=== PATIENT | male | born 1975 | race American Indian/Alaskan Native ===

== ENCOUNTER 2020-02-11 12:26 | Inpatient (IN) | payer OTHER ==
--- NOTE | 2020-02-11 13:01 | Emergency Department Report ---
<DUNCAN CHAMPION - Last Filed: 02/11/20 21:56> ED General Adult HPI - General Chief complaint: Weakness Stated complaint: WEAKNESS/ALTERED MENTAL STATUS Time Seen by Provider: 02/11/20 12:49 - Related Data Allergies Allergy/AdvReac Type Severity Reaction Status Date / Time No Known Allergies Allergy Unverified 02/11/20 16:08 ED Medical Decision Making - Lab Data Result diagrams: 02/11/20 13:16 02/11/20 20:36 - Medical Decision Making Patient signed out to me by Dr. Sinclair. Repeat BMP and CK reviewed. There was some improvement in CK with 3 L of IV fluid provided. Patient continues to have normal anion gap likely secondary to dehydration ketosis. Patient then received 2 additional liters of D5 NS with repeat BMP and CK level Patient did also also eat here in the ED department Patient did receive repeat BMP and CK. Third BMP shows improvement in BUN to creatinine ratio/dehydration although bicarb is now 16. Patient also has an elevation in his CK but has only received 75% of the first liter of D5 out of the 2 that were ordered. Nurse reports that patient keeps bending his arm therefore interviewing with the effusion of the fluids at the ordered rate. Since CK is trending upwards extended hours and nurse only reports that patient has only had a small amount of urine output x2 patient will be admitted to the hospital for significant dehydration and elevated CK level 1013 signed for supervision during inpatient care ED Disposition Clinical Impression: Dehydration, Physical deconditioning, Medical clearance for psychiatric a dmission, Elevated CK Disposition: OP ADMIT IP TO THIS HOSP Is pt being admited?: Yes Condition: Stable Time of Disposition: 21:58 (Dr Farfan/hospitalist) <DAWOOD SINCLAIR - Last Filed: 02/12/20 12:37> ED General Adult HPI - General PUI?: No Source: patient, EMS ( EMS documentation not available at time of chart dictation ), RN notes reviewed, old records reviewed Mode of arrival: Stretcher Limitations: Other (Patient is a poor historian) - History of Present Illness Initial comments: The patient is a 44-year-old gentleman. This patient is not known to myself previously. He reportedly has a history of HIV, depression, and is noncompliant with his outpatient medications. He is currently on a 1013 for depression, history of noncompliance, inability to take care of himself. He was seen at [facility] recently, medically cleared, and sent to a local psychiatric facility. He is sent to the emergency room from this local psychiatric facility, [place], for evaluation. Apparently, the patient has been weak, not eating, not taking his medicines. The patient when I interview him admits to generalized weakness. He denies headache, neck pain, chest pain, abdominal pain, shortness of breath, urinary symptoms, homicidality and suicidality. He does state "my butt hurts me." He tells me that he does not want to eat the food here "because I think it probably tastes nasty." -: Gradual, days(s) Improves with: none (Patient describes no exacerbating or relieving factors) Worsens with: none ED Review of Systems ROS: Stated complaint: WEAKNESS/ALTERED MENTAL STATUS Other details as noted in HPI Constitutional: denies: fever Eyes: denies: eye discharge ENT: denies: epistaxis Respiratory: denies: cough Cardiovascular: denies: chest pain Gastrointestinal: denies: abdominal pain Genitourinary: denies: dysuria Musculoskeletal: myalgia Neurological: weakness Psychiatric: denies: homicidal thoughts, suicidal thoughts ED Past Medical Hx - Past Medical History Previous Medical History?: Yes Hx Psychiatric Treatment: Yes (depression, schizophrenia) Hx HIV: Yes - Surgical History Past Surgical History?: Yes - Social History Smoking Status: Never Smoker Substance Use Type: None ED Physical Exam - General Limitations: No Limitations General appearance: alert, in no apparent distress - Head Head exam: Present: atraumatic, normocephalic - Eye Eye exam: Present: normal appearance, EOMI, other (Visual acuity intact to finger counting, color perception, reading at a close distance). Absent: nystagmus - ENT ENT exam: Present: normal exam, normal orophraynx, mucous membranes moist, normal external ear exam - Neck Neck exam: Present: normal inspection, full ROM. Absent: tenderness, meningismus - Respiratory Respiratory exam: Present: normal lung sounds bilaterally. Absent: respiratory distress, wheezes, rales, rhonchi, stridor, decreased breath sounds - Cardiovascular Cardiovascular Exam: Present: regular rate, normal rhythm, normal heart sounds. Absent: bradycardia, tachycardia, irregular rhythm, systolic murmur, diastolic murmur, rubs, gallop - GI/Abdominal GI/Abdominal exam: Present: soft, normal bowel sounds. Absent: distended, tenderness, guarding, rebound, rigid, pulsatile mass - Rectal Rectal exam: Present: normal inspection, normal rectal tone, other (Chaperoned by nurse Cristina Dow). Absent: heme (-) stool, black stool, bloody stool - Extremities Exam Extremities exam: Present: normal inspection, full ROM, other (2+ pulses noted in the bilateral upper and lower extremities. There is no palpable cord. negative Homans sign. Muscular compartments are soft. The pelvis is stable.). Absent: pedal edema, calf tenderness - Back Exam Back exam: Present: normal inspection, full ROM. Absent: tenderness, CVA tenderness (R), CVA tenderness (L), paraspinal tenderness, vertebral tenderness - Neurological Exam Neurological exam: Present: alert, oriented X3, other (No facial droop. Tongue midline. Extraocular movements intact bilaterally. Facial sensation intact to light touch in V1, V2, V3 distribution bilaterally. 5 and a 5 strength in 4 extremities. Sensation intact to light touch in 4 extremities.). Absent: motor sensory deficit - Psychiatric Psychiatric exam: Present: flat affect. Absent: homicidal ideation, suicidal ideation - Skin Skin exam: Present: warm, dry, intact, normal color. Absent: rash ED Course Vital Signs 02/11/20 02/11/20 02/11/20 12:40 19:36 23:20 Temperature 97.9 F 98.0 F 98.0 F Pulse Rate 94 H 83 91 H Respiratory 14 16 18 Rate Blood Pressure 128/88 100/60 123/77 [Right] O2 Sat by Pulse 100 99 100 Oximetry - Reevaluation(s) Reevaluation #1: 02/11/20 13:40 Differential diagnosis, including but not limited to: Dysthymia, debility, malnutrition, electrolyte derangement, deconditioning, general medical evaluation Assessment and plan: 44-year-old gentleman, who is afebrile, with reassuring vital signs, rectal temperature 97.3 degrees, moving 4 extremities spontaneously, vigorously withdraws extremities in response to painful stimuli, who is awake, alert, oriented, protecting his airway, with a fairly unremarkable physical examination. I suspect that the patient is depressed, and deconditioned. His vital signs are unremarkable, his physical exam is fairly unremarkable, case management consultation/physical therapy consultation have been requested, patient can participate with outpatient physical therapy and rehabilitation. Laboratory studies pending, urinalysis pending, x-ray of the chest unremarkable, I do not anticipate that the patient will be criteria for admission or hospitalization at this time. I suspect that his psychiatric pathology will need to be optimized in order to improve his functional status. Reevaluation #2: 02/11/20 14:25 Laboratory studies are reviewed and appreciated. Patient has a mild anion gap, mildly elevated CK, and evidence of dehydration. IV fluids ordered, and repeat laboratory studies ordered, to assess improvement in anion gap and CK. The patient is unlikely to be criteria for hospitalization or admission at this time. Reevaluation #3: 02/11/20 15:30 Patient is resting comfortably at this time, and he is in no acute distress. IV fluids were administered. Urinalysis, repeat laboratory studies are ordered and pending. Care will be transferred to the oncoming physician, Dr. Champion, to follow-up on the aforementioned studies. We anticipate discharge. ED Medical Decision Making - Lab Data Result diagrams: 02/12/20 09:58 02/12/20 09:58 Vital Signs 02/11/20 12:40 Temperature 97.9 F Pulse Rate 94 H Respiratory 14 Rate Blood Pressure 128/88 [Right] O2 Sat by Pulse 100 Oximetry Lab Results 02/11/20 02/11/20 02/11/20 Range/Units 13:16 13:16 13:16 WBC 5.5 (4.5-11.0) K/mm3 RBC 4.13 (3.65-5.03) M/mm3 Hgb 12.4 (11.8-15.2) gm/dl Hct 36.3 (35.5-45.6) % MCV 88 (84-94) fl MCH 30 (28-32) pg MCHC 34 (32-34) % RDW 15.7 H (13.2-15.2) % Plt Count 230 (140-440) K/mm3 Lymph % (Auto) 11.0 L (13.4-35.0) % [place] % (Auto) 11.4 H (0.0-7.3) % Eos % (Auto) 0.2 (0.0-4.3) % Baso % (Auto) 0.2 (0.0-1.8) % Lymph # (Auto) 0.6 L (1.2-5.4) K/mm3 [place] # (Auto) 0.6 (0.0-0.8) K/mm3 Eos # (Auto) 0.0 (0.0-0.4) K/mm3 Baso # (Auto) 0.0 (0.0-0.1) K/mm3 Seg Neutrophils % 77.2 H (40.0-70.0) % Seg Neutrophils # 4.3 (1.8-7.7) K/mm3 Sodium 140 (137-145) mmol/L Potassium 4.2 (3.6-5.0) mmol/L Chloride 102.4 (98-107) mmol/L Carbon Dioxide 18 L (22-30) mmol/L Anion Gap 24 mmol/L BUN 33 H (9-20) mg/dL Creatinine 1.1 (0.8-1.3) mg/dL Estimated GFR > 60 ml/min BUN/Creatinine Ratio 30 % Glucose 86 (75-100) mg/dL Calcium 10.5 H (8.4-10.2) mg/dL Magnesium 2.40 H (1.7-2.3) mg/dL Total Bilirubin 0.60 (0.1-1.2) mg/dL AST 66 H (5-40) units/L ALT 31 (7-56) units/L Alkaline Phosphatase 142 H (35-129) units/L Total Creatine Kinase 1900 H (55-170) units/L Total Protein 8.8 H (6.3-8.2) g/dL Albumin 4.1 (3.9-5) g/dL Albumin/Globulin Ratio 0.9 % TSH 1.990 (0.270-4.200) mlU/mL Salicylates (2.8-20.0) mg/dL Acetaminophen (10.0-30.0) ug/mL Plasma/Serum Alcohol (0-0.07) % 02/11/20 02/11/20 02/11/20 Range/Units 13:16 13:16 13:16 WBC (4.5-11.0) K/mm3 RBC (3.65-5.03) M/mm3 Hgb (11.8-15.2) gm/dl Hct (35.5-45.6) % MCV (84-94) fl MCH (28-32) pg MCHC (32-34) % RDW (13.2-15.2) % Plt Count (140-440) K/mm3 Lymph % (Auto) (13.4-35.0) % [place] % (Auto) (0.0-7.3) % Eos % (Auto) (0.0-4.3) % Baso % (Auto) (0.0-1.8) % Lymph # (Auto) (1.2-5.4) K/mm3 [place] # (Auto) (0.0-0.8) K/mm3 Eos # (Auto) (0.0-0.4) K/mm3 Baso # (Auto) (0.0-0.1) K/mm3 Seg Neutrophils % (40.0-70.0) % Seg Neutrophils # (1.8-7.7) K/mm3 Sodium (137-145) mmol/L Potassium (3.6-5.0) mmol/L Chloride (98-107) mmol/L Carbon Dioxide (22-30) mmol/L Anion Gap mmol/L BUN (9-20) mg/dL Creatinine (0.8-1.3) mg/dL Estimated GFR ml/min BUN/Creatinine Ratio % Glucose (75-100) mg/dL Calcium (8.4-10.2) mg/dL Magnesium (1.7-2.3) mg/dL Total Bilirubin (0.1-1.2) mg/dL AST (5-40) units/L ALT (7-56) units/L Alkaline Phosphatase (35-129) units/L Total Creatine Kinase (55-170) units/L Total Protein (6.3-8.2) g/dL Albumin (3.9-5) g/dL Albumin/Globulin Ratio % TSH (0.270-4.200) mlU/mL Salicylates < 0.3 L (2.8-20.0) mg/dL Acetaminophen 5.0 L (10.0-30.0) ug/mL Plasma/Serum Alcohol < 0.01 (0-0.07) % - EKG Data -: EKG Interpreted by [place] EKG shows normal: sinus rhythm Rate: normal - EKG Data 02/11/20 13:42 Sinus rhythm, 91 bpm, normal axis, QTC within normal limits, high left ventricular voltage, the EKG is not a STEMI. There is no prior EKG available for comparison. - Radiology Data Radiology results: report reviewed, image reviewed X-ray of the chest is negative for acute findings Critical care attestation.: If time is entered above; I have spent that time in minutes in the direct care of this critically ill patient, excluding procedure time. ED Disposition Is pt being admited?: Yes Does the pt Need Aspirin: No
--- NOTE | 2020-02-11 13:30 | XRay Report ---
CHEST 1 VIEW INDICATION: weakness. COMPARISON: None FINDINGS: SUPPORT DEVICES: None. HEART: Within normal limits. LUNGS/PLEURA: No acute air space or interstitial disease. ADDITIONAL FINDINGS: None. IMPRESSION: 1. No acute findings. Signer Name: Fortunato Ceja MD Signed: 02/11/2020 1:25 PM Workstation Name: [id number]
[2020-02-11 13:44] LABS: Basophils % (Auto) 0.2 % (0.0-1.8); Eosinophils % (Auto) 0.2 % (0.0-4.3); Hematocrit 36.3 % (35.5-45.6); Hemoglobin 12.4 gm/dl (11.8-15.2); Lymphocytes # (Auto) 0.6 K/mm3 (1.2-5.4); Mean Corpuscular HGB Conc 34 % (32-34); Mean Corpuscular Volume 88 fl (84-94); Monocytes # (Auto) 0.6 K/mm3 (0.0-0.8); Monocytes % (Auto) 11.4 % (0.0-7.3); Platelet Count 230 K/mm3 (140-440); Red Blood Count 4.13 M/mm3 (3.65-5.03); Red Cell Distribution Width 15.7 % (13.2-15.2)
[2020-02-11 13:59] LABS: Alanine Aminotransferase 31 units/L (7-56); Albumin 4.1 g/dL (3.9-5); BUN/Creatinine Ratio 30; Blood Urea Nitrogen 33 mg/dL (9-20); Calcium 10.5 mg/dL (8.4-10.2); Hemolysis Index 5
[2020-02-11] MEDS ORDERED: LACTATED RINGERS 1,000 ML IV ONE ×2 (14:19)
[2020-02-11] MEDS ORDERED: SODIUM CHLORIDE 0.9% 1000 ML 1,000 ML IV ONE (15:30)
[2020-02-11 16:23] LABS: Bilirubin,Urine NEG (Negative); Blood,Urine LG (Negative); Color,Urine Amber (Yellow); Mucus,Urine FEW /HPF
[2020-02-11 17:15] LABS: BUN/Creatinine Ratio 29; Blood Urea Nitrogen 29 mg/dL (9-20); Calcium 9.8 mg/dL (8.4-10.2); Hemolysis Index 9
[2020-02-11] MEDS ORDERED: D5W/0.9% NACL 1,000 ML IV SCH ×2 (18:00)
[2020-02-11 21:14] LABS: Blood Urea Nitrogen 23 mg/dL (9-20); Calcium 8.8 mg/dL (8.4-10.2); Hemolysis Index 6
[2020-02-11 21:18] LABS: BUN/Creatinine Ratio 33
[2020-02-11] MEDS ORDERED: MAGNESIUM HYDROXIDE (MOM) ORAL LIQD UDC PO PRN (22:12)
[2020-02-11] MEDS ORDERED: ONDANSETRON 4 MG/2 ML INJ IV PRN (22:12)
[2020-02-11] MEDS ORDERED: ACETAMINOPHEN 325 MG TAB PO PRN (22:12)
--- NOTE | 2020-02-11 22:21 | History and Physical Report ---
History of Present Illness Date of examination: 02/11/20 Date of admission: 02/11/2020 Chief complaint: Generalized weakness Decreased P.O. Intake History of present illness: 44-year-old -[place] male with known history of depression, HIV positive and history of noncompliance with medications currently on 1013 for depression presents to the emergency room today for evaluation of generalized weakness. Patient was at [facility] recently and medically cleared and later sent to [place] psychiatric facility. Patient is said to have been feeling weak lately and has been having decreased oral intake and also declining his medications. He denies any headache or dizziness, no chest pain or shortness of breath, no nausea or vomiting, no diarrhea, no hematuria or dysuria. Patient is a poor historian. He denies any homicidal or suicidal ideations. Evaluation in the emergency room today reveals elevated CK level, patient was also found to be dehydrated. He has been started on IV fluid and also placed on 1013 for depression. Past History Past Medical History: other (depression,HIV) Past Surgical History: No surgical history Social history: no significant social history Family history: no significant family history Medications and Allergies Allergies Allergy/AdvReac Type Severity Reaction Status Date / Time No Known Allergies Allergy Unverified 02/11/20 16:08 Active Meds: Active Medications Acetaminophen (Tylenol) 650 mg PO Q4H PRN PRN Reason: Pain MILD(1-3)/Fever >100.5/GARCIA Heparin Sodium (Porcine) (Heparin) 5,000 unit SUB-Q Q8HR YOLI Dextrose/Sodium Chloride (D5ns) 1,000 mls @ 999 mls/hr IV DIRECT YOLI Last Admin: 02/11/20 19:03 Dose: 999 mls/hr Documented by: Sodium Chloride (Nacl 0.9% 1000 Ml) 1,000 mls @ 150 mls/hr IV DIRECT YOLI Magnesium Hydroxide (Milk Of Magnesia) 30 ml PO Q4H PRN PRN Reason: Constipation Ondansetron HCl (Zofran) 4 mg IV Q8H PRN PRN Reason: Nausea And Vomiting Sodium Chloride (Sodium Chloride Flush Syringe 10 Ml) 10 ml IV BID YOLI Sodium Chloride (Sodium Chloride Flush Syringe 10 Ml) 10 ml IV PRN PRN PRN Reason: LINE FLUSH Review of Systems Constitutional: weakness, poor appetite, no fever, no chills Ears, nose, mouth and throat: no nasal congestion, no sore throat Cardiovascular: no chest pain, no palpitations Respiratory: no cough, no shortness of breath Gastrointestinal: no abdominal pain, no nausea, no vomiting, no diarrhea Genitourinary Male: no dysuria, no hematuria, no flank pain, no nocturia Musculoskeletal: no neck pain, no low back pain Integumentary: no rash, no pruritis Neurological: no headaches, no confusion Psychiatric: depression, no anxiety Exam - Constitutional Vitals: Temp Pulse Resp BP Pulse Ox 98.0 F 83 16 100/60 99 02/11/20 19:36 02/11/20 19:36 02/11/20 19:36 02/11/20 19:36 02/11/20 19:36 General appearance: Present: no acute distress, well-nourished - EENT Eyes: Present: PERRL, EOM intact. Absent: scleral icterus ENT: hearing intact, clear oral mucosa, dentition normal - Neck Neck: Present: supple, normal ROM - Respiratory Respiratory effort: normal Respiratory: bilateral: CTA - Cardiovascular Rhythm: regular Heart Sounds: Present: S1 & S2. Absent: gallop, systolic murmur, diastolic murmur, rub - Extremities Extremities: no ischemia, pulses intact, pulses symmetrical, No edema, Full ROM Peripheral Pulses: within normal limits - Abdominal General gastrointestinal: Present: soft, non-tender, non-distended, normal bowel sounds. Absent: mass - Integumentary Integumentary: Present: clear, warm, dry. Absent: rash - Musculoskeletal Musculoskeletal: strength equal bilaterally - Psychiatric Psychiatric: appropriate mood/affect, intact judgment & insight, memory intact, cooperative - Neurologic Neurologic: CNII-XII intact, no focal deficits, moves all extremities Results - Labs CBC & Chem 7: 02/11/20 13:16 02/11/20 20:36 Labs: Abnormal lab results 02/11/20 02/11/20 02/11/20 Range/Units 13:16 13:16 13:16 RDW 15.7 H (13.2-15.2) % Lymph % (Auto) 11.0 L (13.4-35.0) % [place] % (Auto) 11.4 H (0.0-7.3) % Lymph # (Auto) 0.6 L (1.2-5.4) K/mm3 Seg Neutrophils % 77.2 H (40.0-70.0) % Chloride (98-107) mmol/L Carbon Dioxide 18 L (22-30) mmol/L BUN 33 H (9-20) mg/dL Creatinine (0.8-1.3) mg/dL Glucose (75-100) mg/dL Calcium 10.5 H (8.4-10.2) mg/dL Magnesium 2.40 H (1.7-2.3) mg/dL AST 66 H (5-40) units/L Alkaline Phosphatase 142 H (35-129) units/L Total Creatine Kinase 1900 H (55-170) units/L Total Protein 8.8 H (6.3-8.2) g/dL Salicylates < 0.3 L (2.8-20.0) mg/dL Acetaminophen (10.0-30.0) ug/mL 02/11/20 02/11/20 02/11/20 Range/Units 13:16 16:34 20:36 RDW (13.2-15.2) % Lymph % (Auto) (13.4-35.0) % [place] % (Auto) (0.0-7.3) % Lymph # (Auto) (1.2-5.4) K/mm3 Seg Neutrophils % (40.0-70.0) % Chloride 109.1 H (98-107) mmol/L Carbon Dioxide 18 L 16 L (22-30) mmol/L BUN 29 H 23 H (9-20) mg/dL Creatinine 0.7 L (0.8-1.3) mg/dL Glucose 112 H 157 H (75-100) mg/dL Calcium (8.4-10.2) mg/dL Magnesium (1.7-2.3) mg/dL AST (5-40) units/L Alkaline Phosphatase (35-129) units/L Total Creatine Kinase 1842 H 2446 H (55-170) units/L Total Protein (6.3-8.2) g/dL Salicylates (2.8-20.0) mg/dL Acetaminophen 5.0 L (10.0-30.0) ug/mL Assessment and Plan - Patient Problems (1) Elevated CK Current Visit: Yes Status: Acute Plan to address problem: Etiology is unclear. Patient commenced on IV fluid and will monitor creatinine kinase levels. (2) Physical deconditioning Current Visit: Yes Status: Acute Plan to address problem: Possibly secondary to decreased oral intake. Patient has been encouraged on having adequate p.o. intake. Will place a dietary consult for evaluation. (3) Dehydration Current Visit: Yes Status: Acute Plan to address problem: We will continue patient on IV fluid and monitor chemistry. (4) Depression Current Visit: Yes Status: Acute Plan to address problem: We will place a consult to mental health for evaluation. Will resume routine home medications once reconciled. (5) HIV positive Current Visit: Yes Status: Acute Plan to address problem: Unclear whether patient has been taking his HIV medications. CD4 count unknown. We will place a consult to infectious disease for evaluation. (6) DVT prophylaxis Current Visit: Yes Status: Acute Plan to address problem: Patient placed on subcutaneous heparin. (7) Full code status Current Visit: Yes Status: Acute
[2020-02-11] MEDS: SODIUM CHLORIDE 0.9% 1000 ML 1,000 ML IV SCH (23:50)
[2020-02-12 00:14] LABS: Amphetamine Screen,Urine PRESUMPTIVE NEGATIVE; Benzodiazepines Screen,Urine PRESUMPTIVE NEGATIVE; Cannabinoid Screen,Urine PRESUMPTIVE NEGATIVE; Cocaine Screen,Urine PRESUMPTIVE NEGATIVE; Methadone Screen,Urine PRESUMPTIVE NEGATIVE; Opiate Screen,Urine PRESUMPTIVE NEGATIVE
[2020-02-12] MEDS: HEPARIN 5,000 UNIT/1 ML VIAL SUB-Q SCH ×3 (05:59→21:39)
--- NOTE | 2020-02-12 08:46 | Progress Note ---
Assessment and Plan Assessment and plan: --Metabolic encephalopathy; Current Visit: Yes Status: Acute Plan to address problem: multifactorial, underlying psych disease HIV, severe malnutrition,Supportive care Treat the underlying cause, neurochecks --Severe depression[sent from [facility]] Current Visit: Yes Status: Acute Plan to address problem: Management per psych Patient is 1013 status[came from [place]] --Rhabdomyolysis /elevated CK Current Visit: Yes Status: Acute Plan to address problem: Rigorous IV hydration, input output monitoring, follow renal function Monitor CK levels, plenty of oral fluids --Physical deconditioning Current Visit: Yes Status: Acute Plan to address problem: Possibly secondary to decreased oral intake. Patient encouraged on having adequate p.o. intake. Will place a dietary consult for evaluation. --Severe dehydration Current Visit: Yes Status: Acute Plan to address problem: We will continue patient on IV fluid and monitor chemistry. --HIV/on antiretrovirals, unknown CD4/viral counts Current Visit: Yes Status: Acute Plan to address problem: ID evaluation, unknown CD4 count and viral load Unknown whether patient is compliant with medications or not --Severe malnutrition; BMI 16.9 Current Visit: Yes Status: Acute Plan to address problem: nutrition supplements, supportive care, nutrition consult --DVT prophylaxis Current Visit: Yes Status: Acute Plan to address problem: Patient placed on subcutaneous heparin. -- Full code status Current Visit: Yes Status: Acute We will closely monitor the patient and adjust the management as needed Patient is 1013 status, follow ID and psych evaluation and recommendations Plan of care reviewed with the patient and History Interval history: I have seen and examined the patient at the bedside this morning Patient's chart and medications reviewed Patient is slightly agitated verbal Wants to go home Vital signs noted Hospitalist Physical - Constitutional Vitals: Temp Pulse Resp BP Pulse Ox 97.9 F 89 18 143/87 99 02/12/20 06:52 02/12/20 06:52 02/12/20 06:52 02/12/20 06:52 02/12/20 06:52 General appearance: Present: no acute distress, well-nourished - EENT Eyes: Present: PERRL, EOM intact - Neck Neck: Present: supple, normal ROM - Respiratory Respiratory effort: normal Respiratory: bilateral: diminished, negative: rales, rhonchi, wheezing - Cardiovascular Rhythm: regular Heart Sounds: Present: S1 & S2 - Extremities Extremities: no ischemia, No edema - Abdominal General gastrointestinal: soft, non-tender, non-distended, normal bowel sounds - Integumentary Integumentary: Present: clear, warm - Psychiatric Psychiatric: appropriate mood/affect, cooperative - Neurologic Neurologic: CNII-XII intact, moves all extremities Results - Labs CBC & Chem 7: 02/12/20 09:58 02/12/20 09:58 Labs: Laboratory Last Values WBC 5.5 K/mm3 (4.5-11.0) 02/11/20 13:16 RBC 4.13 M/mm3 (3.65-5.03) 02/11/20 13:16 Hgb 12.4 gm/dl (11.8-15.2) 02/11/20 13:16 Hct 36.3 % (35.5-45.6) 02/11/20 13:16 MCV 88 fl (84-94) 02/11/20 13:16 MCH 30 pg (28-32) 02/11/20 13:16 MCHC 34 % (32-34) 02/11/20 13:16 RDW 15.7 % (13.2-15.2) H 02/11/20 13:16 Plt Count 230 K/mm3 (140-440) 02/11/20 13:16 Lymph % (Auto) 11.0 % (13.4-35.0) L 02/11/20 13:16 [place] % (Auto) 11.4 % (0.0-7.3) H 02/11/20 13:16 Eos % (Auto) 0.2 % (0.0-4.3) 02/11/20 13:16 Baso % (Auto) 0.2 % (0.0-1.8) 02/11/20 13:16 Lymph # (Auto) 0.6 K/mm3 (1.2-5.4) L 02/11/20 13:16 [place] # (Auto) 0.6 K/mm3 (0.0-0.8) 02/11/20 13:16 Eos # (Auto) 0.0 K/mm3 (0.0-0.4) 02/11/20 13:16 Baso # (Auto) 0.0 K/mm3 (0.0-0.1) 02/11/20 13:16 Seg Neutrophils % 77.2 % (40.0-70.0) H 02/11/20 13:16 Seg Neutrophils # 4.3 K/mm3 (1.8-7.7) 02/11/20 13:16 Sodium 140 mmol/L (137-145) 02/11/20 20:36 Potassium 3.8 mmol/L (3.6-5.0) 02/11/20 20:36 Chloride 109.1 mmol/L (98-107) H 02/11/20 20:36 Carbon Dioxide 16 mmol/L (22-30) L 02/11/20 20:36 Anion Gap 19 mmol/L 02/11/20 20:36 BUN 23 mg/dL (9-20) H 02/11/20 20:36 Creatinine 0.7 mg/dL (0.8-1.3) L 02/11/20 20:36 Estimated GFR > 60 ml/min 02/11/20 20:36 BUN/Creatinine Ratio 33 % 02/11/20 20:36 Glucose 157 mg/dL (75-100) H 02/11/20 20:36 Calcium 8.8 mg/dL (8.4-10.2) 02/11/20 20:36 Magnesium 2.40 mg/dL (1.7-2.3) H 02/11/20 13:16 Total Bilirubin 0.60 mg/dL (0.1-1.2) 02/11/20 13:16 AST 66 units/L (5-40) H 02/11/20 13:16 ALT 31 units/L (7-56) 02/11/20 13:16 Alkaline Phosphatase 142 units/L (35-129) H 02/11/20 13:16 Ammonia TNR 02/11/20 13:16 Total Creatine Kinase 2446 units/L (55-170) H 02/11/20 20:36 Total Protein 8.8 g/dL (6.3-8.2) H 02/11/20 13:16 Albumin 4.1 g/dL (3.9-5) 02/11/20 13:16 Albumin/Globulin Ratio 0.9 % 02/11/20 13:16 TSH 1.990 mlU/mL (0.270-4.200) 02/11/20 13:16 Urine Color Shaniqua (Yellow) 02/11/20 16:00 Urine Turbidity Slightly-cloudy (Clear) 02/11/20 16:00 Urine pH 5.0 (5.0-7.0) 02/11/20 16:00 Ur Specific [place] 1.025 (1.003-1.030) 02/11/20 16:00 Urine Protein 100 mg/dl mg/dL (Negative) 02/11/20 16:00 Urine Glucose (UA) Neg mg/dL (Negative) 02/11/20 16:00 Urine Ketones 20 mg/dL (Negative) 02/11/20 16:00 Urine Blood Lg (Negative) 02/11/20 16:00 Urine Nitrite Neg (Negative) 02/11/20 16:00 Urine Bilirubin Neg (Negative) 02/11/20 16:00 Urine Urobilinogen 4.0 mg/dL (<2.0) 02/11/20 16:00 Ur Leukocyte Esterase Neg (Negative) 02/11/20 16:00 Urine WBC (Auto) 2.0 /HPF (0.0-6.0) 02/11/20 16:00 Urine RBC (Auto) 3.0 /HPF (0.0-6.0) 02/11/20 16:00 U Epithel Cells (Auto) 1.0 /HPF (0-13.0) 02/11/20 16:00 Urine Mucus Few /HPF 02/11/20 16:00 Salicylates < 0.3 mg/dL (2.8-20.0) L 02/11/20 13:16 Urine Opiates Screen Presumptive negative 02/11/20 23:22 Urine Methadone Screen Presumptive negative 02/11/20 23:22 Acetaminophen 5.0 ug/mL (10.0-30.0) L 02/11/20 13:16 Ur Barbiturates Screen Presumptive negative 02/11/20 23:22 Ur Phencyclidine Scrn Presumptive negative 02/11/20 23:22 Ur Amphetamines Screen Presumptive negative 02/11/20 23:22 U Benzodiazepines Scrn Presumptive negative 02/11/20 23:22 Urine Cocaine Screen Presumptive negative 02/11/20 23:22 U Marijuana (THC) Screen Presumptive negative 02/11/20 23:22 Drugs of Abuse Note Disclamer 02/11/20 23:22 Plasma/Serum Alcohol < 0.01 % (0-0.07) 02/11/20 13:16 Gautam/IV: IV Catheter Type [Right Peripheral IV Antecubital] Active Medications - Current Medications Current Medications: Generic Name Dose Route Start Last Admin Trade Name Freq PRN Reason Stop Dose Admin Acetaminophen 650 mg 02/11/20 22:12 Tylenol PO Q4H PRN Pain MILD(1-3)/Fever >100.5/GARCIA Heparin Sodium (Porcine) 5,000 unit 02/12/20 06:00 02/12/20 05:59 Heparin SUB-Q 5,000 unit Q8HR YOLI Administration Sodium Chloride 1,000 mls @ 150 mls/hr 02/11/20 22:15 02/11/20 23:50 Nacl 0.9% 1000 Ml IV 150 mls/hr DIRECT YOLI Administration Magnesium Hydroxide 30 ml 02/11/20 22:12 Milk Of Magnesia PO Q4H PRN Constipation Ondansetron HCl 4 mg 02/11/20 22:12 Zofran IV Q8H PRN Nausea And Vomiting Sodium Chloride 10 ml 02/12/20 10:00 Sodium Chloride Flush Syringe 10 Ml IV BID YOLI Sodium Chloride 10 ml 02/11/20 22:12 Sodium Chloride Flush Syringe 10 Ml IV PRN PRN LINE FLUSH
[2020-02-12 10:49] LABS: Hematocrit 31.3 % (35.5-45.6); Mean Corpuscular HGB Conc 35 % (32-34); Mean Corpuscular Volume 90 fl (84-94); Red Blood Count 3.48 M/mm3 (3.65-5.03); Red Cell Distribution Width 15.6 % (13.2-15.2)
[2020-02-12 11:05] LABS: INR 1.13 (0.87-1.13)
[2020-02-12 11:06] LABS: Blood Urea Nitrogen 11 mg/dL (9-20); Calcium 9.5 mg/dL (8.4-10.2); Hemolysis Index 2
[2020-02-12 11:08] LABS: BUN/Creatinine Ratio 16
--- NOTE | 2020-02-12 11:24 | Consultation ---
History of Present Illness - Reason for Consult Consult date: 02/12/20 Reason for consult: depression - History of Present Psychiatric Illness The patient's medical record was reviewed and the patient's progress was discussed with the nursing staff. The sitter states the patient repeats the same thing over and over. Mike Samuel is a 44y/o male patient who was admitted from [facility] for medical clearance. During my interview with the patient today he is a/o x 3. His thought process is somewhat disorganized and tangential. He is difficult to follow. He is a poor historian. He can't give any insight as to what is going on with him. He says he was brought to the hospital for "my big toe." He then says "and I have HIV and need my medications." The patient asks "can you tell that I'm nesbitt?" He says "I really don't know why I'm here but I need someone to listen." The patient says he's "ready to get home to my boyfriend and brother." He denies any illicit drug use, alcohol or nicotine. He also denies hallucinations of any kind. The patient denies SI/HI or ever an attempt of suicide. He states, "I'm not a violent person." He denies having any psychiatric history, including ever being on any medications. The patient starts telling me about his siblings, and asks me to mention a rapper. He says "my sister is to a rapper and she's jag calvin." PAST PSYCHIATRIC HISTORY: Diagnoses: Denies Suicide attempts or Self-harm behavior: Denies Prior psychiatric hospitalizations: Once Substance Abuse history: Denies Previous psychiatric medications tried: Denies Outpatient treatment: Denies PAST MEDICAL HISTORY: Family Psychiatric History: None reported or documented SOCIAL HISTORY Marital Status: Single Living Arrangements: with boyfriend and brother Employment Status: Unemployed Access to guns/weapons: Denies Education: 12th History of Abuse: none reported Legal History: Denies REVIEW OF SYSTEMS Constitutional: Negative for weight loss ENT: Negative for stridor Respiratory: Negative for cough or hemoptysis All other systems reviewed and are negative MENTAL STATUS EXAMINATION General Appearance: Dressed appropriately Behavior: Calm and cooperative Mood: "okay" Affect and affective range: Congruent with stated mood Thought Process: disorganized, tangential Speech: tangential Suicidal Ideation: Denies Homicidal Ideation: Denies Hallucinations: Denies Delusions: None elicited Insight and Judgment: Limited Memory/Cognition: impaired Attention: Normal Orientation: Alert, oriented x 3 Assessment Major Depressive Disorder Altered Mental Status PLAN Start Risperidone 0.25mg po BID Start Trazodone 50mg po daily Start Zoloft 25mg po daily Sitter: Defer to primary Medical: Per primary Disposition: recommend acute inpatient psychiatric treatment Will follow. Thank you for this consult Medications and Allergies Allergies Allergy/AdvReac Type Severity Reaction Status Date / Time No Known Allergies Allergy Unverified 02/11/20 16:08 Active Meds: Active Medications Acetaminophen (Tylenol) 650 mg PO Q4H PRN PRN Reason: Pain MILD(1-3)/Fever >100.5/GARCIA Heparin Sodium (Porcine) (Heparin) 5,000 unit SUB-Q Q8HR YOLI Last Admin: 02/12/20 05:59 Dose: 5,000 unit Documented by: Sodium Chloride (Nacl 0.9% 1000 Ml) 1,000 mls @ 150 mls/hr IV DIRECT YOLI Last Admin: 02/11/20 23:50 Dose: 150 mls/hr Documented by: Magnesium Hydroxide (Milk Of Magnesia) 30 ml PO Q4H PRN PRN Reason: Constipation Ondansetron HCl (Zofran) 4 mg IV Q8H PRN PRN Reason: Nausea And Vomiting Sodium Chloride (Sodium Chloride Flush Syringe 10 Ml) 10 ml IV BID YOLI Sodium Chloride (Sodium Chloride Flush Syringe 10 Ml) 10 ml IV PRN PRN PRN Reason: LINE FLUSH Mental Status Exam - Vital signs Last Vital Signs Temp 97.9 F 02/12/20 06:52 Pulse 89 02/12/20 06:52 Resp 18 02/12/20 06:52 BP 143/87 02/12/20 06:52 Pulse Ox 99 02/12/20 06:52 Results Result Diagrams: 02/12/20 09:58 02/12/20 09:58 Abnormal lab results 02/11/20 02/11/20 02/11/20 Range/Units 13:16 13:16 13:16 RBC (3.65-5.03) M/mm3 Hgb (11.8-15.2) gm/dl Hct (35.5-45.6) % MCHC (32-34) % RDW 15.7 H (13.2-15.2) % Lymph % (Auto) 11.0 L (13.4-35.0) % [place] % (Auto) 11.4 H (0.0-7.3) % Lymph # (Auto) 0.6 L (1.2-5.4) K/mm3 Seg Neutrophils % 77.2 H (40.0-70.0) % Chloride (98-107) mmol/L Carbon Dioxide 18 L (22-30) mmol/L BUN 33 H (9-20) mg/dL Creatinine (0.8-1.3) mg/dL Glucose (75-100) mg/dL Calcium 10.5 H (8.4-10.2) mg/dL Magnesium 2.40 H (1.7-2.3) mg/dL AST 66 H (5-40) units/L Alkaline Phosphatase 142 H (35-129) units/L Total Creatine Kinase 1900 H (55-170) units/L Total Protein 8.8 H (6.3-8.2) g/dL Salicylates < 0.3 L (2.8-20.0) mg/dL Acetaminophen (10.0-30.0) ug/mL 02/11/20 02/11/20 02/11/20 Range/Units 13:16 16:34 20:36 RBC (3.65-5.03) M/mm3 Hgb (11.8-15.2) gm/dl Hct (35.5-45.6) % MCHC (32-34) % RDW (13.2-15.2) % Lymph % (Auto) (13.4-35.0) % [place] % (Auto) (0.0-7.3) % Lymph # (Auto) (1.2-5.4) K/mm3 Seg Neutrophils % (40.0-70.0) % Chloride 109.1 H (98-107) mmol/L Carbon Dioxide 18 L 16 L (22-30) mmol/L BUN 29 H 23 H (9-20) mg/dL Creatinine 0.7 L (0.8-1.3) mg/dL Glucose 112 H 157 H (75-100) mg/dL Calcium (8.4-10.2) mg/dL Magnesium (1.7-2.3) mg/dL AST (5-40) units/L Alkaline Phosphatase (35-129) units/L Total Creatine Kinase 1842 H 2446 H (55-170) units/L Total Protein (6.3-8.2) g/dL Salicylates (2.8-20.0) mg/dL Acetaminophen 5.0 L (10.0-30.0) ug/mL 02/12/20 02/12/20 Range/Units 09:58 09:58 RBC 3.48 L (3.65-5.03) M/mm3 Hgb 11.0 L (11.8-15.2) gm/dl Hct 31.3 L (35.5-45.6) % MCHC 35 H (32-34) % RDW 15.6 H (13.2-15.2) % Lymph % (Auto) (13.4-35.0) % [place] % (Auto) (0.0-7.3) % Lymph # (Auto) (1.2-5.4) K/mm3 Seg Neutrophils % (40.0-70.0) % Chloride 110.2 H (98-107) mmol/L Carbon Dioxide 20 L (22-30) mmol/L BUN (9-20) mg/dL Creatinine 0.7 L (0.8-1.3) mg/dL Glucose (75-100) mg/dL Calcium (8.4-10.2) mg/dL Magnesium (1.7-2.3) mg/dL AST (5-40) units/L Alkaline Phosphatase (35-129) units/L Total Creatine Kinase (55-170) units/L Total Protein (6.3-8.2) g/dL Salicylates (2.8-20.0) mg/dL Acetaminophen (10.0-30.0) ug/mL All other labs normal.
[2020-02-12] MEDS: risperiDONE 0.25 MG TAB PO SCH ×2 (13:00→21:38)
[2020-02-12] MEDS: SERTRALINE 25 MG TAB PO SCH (13:01)
[2020-02-12 13:23] LABS: Anisocytosis Few; Band Neutrophils # (Manual) 0.1 K/mm3; Basophils % (Manual) 0 % (0.0-1.8); Macrocytosis Few; Total Cells Counted 100
[2020-02-12 13:24] LABS: Platelet Count 218 K/mm3 (140-440); Platelet Estimate Consistent w Auto
[2020-02-12] MEDS: traZODone 50 MG TAB PO SCH (21:38)
[2020-02-13] MEDS: HEPARIN 5,000 UNIT/1 ML VIAL SUB-Q SCH ×3 (06:31→21:36)
--- NOTE | 2020-02-13 08:25 | Progress Note ---
Assessment and Plan Assessment and plan: --Rhabdomyolysis /elevated CK -[id number] Current Visit: Yes Status: Acute Plan to address problem: Rigorous IV hydration, input output monitoring, follow renal function Monitor CK levels, plenty of oral fluids --Metabolic encephalopathy; Current Visit: Yes Status: Acute Plan to address problem: Patient is still confused, having hallucinations sometimes Psych following --Severe depression[sent from [facility]] Current Visit: Yes Status: Acute Plan to address problem: Management per psych Patient is 1013 status[came from [facility]] --Severe dehydration Current Visit: Yes Status: Acute Plan to address problem: Continue IV hydration Encourage plenty oral fluids --HIV/on antiretrovirals, unknown CD4/viral counts Current Visit: Yes Status: Acute Plan to address problem: ID following ,unknown CD4 count and viral load Patient is mentally not stable, with confusion Hallucinations sometimes, may not be a candidate for aggressive management HIV At this point, ID following --Severe malnutrition; BMI 16.9 Current Visit: Yes Status: Acute Plan to address problem: nutrition supplements, supportive care, nutrition consult --DVT prophylaxis Current Visit: Yes Status: Acute Plan to address problem: Patient placed on subcutaneous heparin. -- Full code status Current Visit: Yes Status: Acute We will closely monitor the patient and adjust the management as needed Patient is 1013 status, follow ID and psych evaluation and recommendations Patient CK level is still high, nephrotoxic, closely monitor renal function Rigorous IV hydration, patient remains confused, with intermittent hallucination Not cleared from psych standpoint, need 1-2 more days of observation Follow CK levels as well as renal function Possible discharge in 1 to 2 days if stable medically and stable per psych History Interval history: I have seen and examined the patient at the bedside 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, 1013 status Alert and awake, confused, verbal, repeating himself Vital signs noted Hospitalist Physical - Constitutional Vitals: Temp Pulse Resp BP Pulse Ox 98.4 F 89 20 123/76 97 02/13/20 05:02/13/20 05:02/13/20 05:26 02/13/20 05:02/13/20 05:26 General appearance: Present: mild distress, well-nourished - EENT Eyes: Present: PERRL, EOM intact - Neck Neck: Present: supple, normal ROM - Respiratory Respiratory effort: normal Respiratory: bilateral: diminished, negative: rales, rhonchi, wheezing - Cardiovascular Rhythm: regular Heart Sounds: Present: S1 & S2 - Extremities Extremities: no ischemia, No edema - Abdominal General gastrointestinal: soft, non-tender, non-distended - Integumentary Integumentary: Present: clear - Psychiatric Psychiatric: appropriate mood/affect, cooperative, other (Confused at times, verbal) - Neurologic Neurologic: moves all extremities Results - Labs CBC & Chem 7: 02/12/20 09:58 02/13/20 10:38 Labs: Laboratory Last Values WBC 3.9 K/mm3 (4.5-11.0) L 02/12/20 09:58 RBC 3.48 M/mm3 (3.65-5.03) L 02/12/20 09:58 Hgb 11.0 gm/dl (11.8-15.2) L 02/12/20 09:58 Hct 31.3 % (35.5-45.6) L 02/12/20 09:58 MCV 90 fl (84-94) 02/12/20 09:58 MCH 32 pg (28-32) 02/12/20 09:58 MCHC 35 % (32-34) H 02/12/20 09:58 RDW 15.6 % (13.2-15.2) H 02/12/20 09:58 Plt Count 218 K/mm3 (140-440) 02/12/20 09:58 Lymph % (Auto) 11.0 % (13.4-35.0) L 02/11/20 13:16 Grayson % (Auto) 11.4 % (0.0-7.3) H 02/11/20 13:16 Eos % (Auto) 0.2 % (0.0-4.3) 02/11/20 13:16 Baso % (Auto) 0.2 % (0.0-1.8) 02/11/20 13:16 Lymph # (Auto) 0.6 K/mm3 (1.2-5.4) L 02/11/20 13:16 Grayson # (Auto) 0.6 K/mm3 (0.0-0.8) 02/11/20 13:16 Eos # (Auto) 0.0 K/mm3 (0.0-0.4) 02/11/20 13:16 Baso # (Auto) 0.0 K/mm3 (0.0-0.1) 02/11/20 13:16 Add Manual Diff Complete 02/12/20 09:58 Total Counted 100 02/12/20 09:58 Seg Neutrophils % 77.2 % (40.0-70.0) H 02/11/20 13:16 Seg Neuts % (Manual) 65.0 % (40.0-70.0) 02/12/20 09:58 Band Neutrophils % 3.0 % 02/12/20 09:58 Lymphocytes % (Manual) 19.0 % (13.4-35.0) 02/12/20 09:58 Reactive Lymphs % (Man) 0 % 02/12/20 09:58 Monocytes % (Manual) 12.0 % (0.0-7.3) H 02/12/20 09:58 Eosinophils % (Manual) 1.0 % (0.0-4.3) 02/12/20 09:58 Basophils % (Manual) 0 % (0.0-1.8) 02/12/20 09:58 Metamyelocytes % 0 % 02/12/20 09:58 Myelocytes % 0 % 02/12/20 09:58 Promyelocytes % 0 % 02/12/20 09:58 Blast Cells % 0 % 02/12/20 09:58 Nucleated RBC % Not Reportable 02/12/20 09:58 Seg Neutrophils # 4.3 K/mm3 (1.8-7.7) 02/11/20 13:16 Seg Neutrophils # Man 2.5 K/mm3 (1.8-7.7) 02/12/20 09:58 Band Neutrophils # 0.1 K/mm3 02/12/20 09:58 Lymphocytes # (Manual) 0.7 K/mm3 (1.2-5.4) L 02/12/20 09:58 Abs React Lymphs (Man) 0.0 K/mm3 02/12/20 09:58 Monocytes # (Manual) 0.5 K/mm3 (0.0-0.8) 02/12/20 09:58 Eosinophils # (Manual) 0.0 K/mm3 (0.0-0.4) 02/12/20 09:58 Basophils # (Manual) 0.0 K/mm3 (0.0-0.1) 02/12/20 09:58 Metamyelocytes # 0.0 K/mm3 02/12/20 09:58 Myelocytes # 0.0 K/mm3 02/12/20 09:58 Promyelocytes # 0.0 K/mm3 02/12/20 09:58 Blast Cells # 0.0 K/mm3 02/12/20 09:58 WBC Morphology Not Reportable 02/12/20 09:58 Hypersegmented Neuts Not Reportable 02/12/20 09:58 Hyposegmented Neuts Not Reportable 02/12/20 09:58 Hypogranular Neuts Not Reportable 02/12/20 09:58 Smudge Cells Not Reportable 02/12/20 09:58 Toxic Granulation Not Reportable 02/12/20 09:58 Toxic Vacuolation Not Reportable 02/12/20 09:58 Dohle Bodies Not Reportable 02/12/20 09:58 Pelger-Huet Anomaly Not Reportable 02/12/20 09:58 Htor Rods Not Reportable 02/12/20 09:58 Platelet Estimate Consistent w auto 02/12/20 09:58 Clumped Platelets Not Reportable 02/12/20 09:58 Plt Clumps, EDTA Not Reportable 02/12/20 09:58 Large Platelets Not Reportable 02/12/20 09:58 Giant Platelets Not Reportable 02/12/20 09:58 Platelet Satelliting Not Reportable 02/12/20 09:58 Plt Morphology Comment Not Reportable 02/12/20 09:58 RBC Morphology Not Reportable 02/12/20 09:58 Dimorphic RBCs Not Reportable 02/12/20 09:58 Polychromasia Not Reportable 02/12/20 09:58 Hypochromasia Not Reportable 02/12/20 09:58 Poikilocytosis Not Reportable 02/12/20 09:58 Anisocytosis Few 02/12/20 09:58 Microcytosis Few 02/12/20 09:58 Macrocytosis Few 02/12/20 09:58 Spherocytes Not Reportable 02/12/20 09:58 Pappenheimer Bodies Not Reportable 02/12/20 09:58 Sickle Cells Not Reportable 02/12/20 09:58 Target Cells Not Reportable 02/12/20 09:58 Tear Drop Cells Not Reportable 02/12/20 09:58 Ovalocytes Not Reportable 02/12/20 09:58 Helmet Cells Not Reportable 02/12/20 09:58 Reinoso-[place] Bodies Not Reportable 02/12/20 09:58 [employer] Rings Not Reportable 02/12/20 09:58 Marko Cells Not Reportable 02/12/20 09:58 Bite Cells Not Reportable 02/12/20 09:58 Crenated Cell Not Reportable 02/12/20 09:58 Elliptocytes Not Reportable 02/12/20 09:58 Acanthocytes (Spur) Not Reportable 02/12/20 09:58 Rouleaux Not Reportable 02/12/20 09:58 Hemoglobin C Crystals Not Reportable 02/12/20 09:58 Schistocytes Not Reportable 02/12/20 09:58 Malaria parasites Not Reportable 02/12/20 09:58 Prabhjot Bodies Not Reportable 02/12/20 09:58 Hem Pathologist Commnt No 02/12/20 09:58 PT 14.6 Sec. (12.2-14.9) 02/12/20 09:58 INR 1.13 (0.87-1.13) 02/12/20 09:58 Sodium 145 mmol/L (137-145) 02/12/20 09:58 Potassium 4.0 mmol/L (3.6-5.0) 02/12/20 09:58 Chloride 110.2 mmol/L (98-107) H 02/12/20 09:58 Carbon Dioxide 20 mmol/L (22-30) L 02/12/20 09:58 Anion Gap 19 mmol/L 02/12/20 09:58 BUN 11 mg/dL (9-20) 02/12/20 09:58 Creatinine 0.7 mg/dL (0.8-1.3) L 02/12/20 09:58 Estimated GFR > 60 ml/min 02/12/20 09:58 BUN/Creatinine Ratio 16 % 02/12/20 09:58 Glucose 97 mg/dL (75-100) 02/12/20 09:58 Calcium 9.5 mg/dL (8.4-10.2) 02/12/20 09:58 Magnesium 2.40 mg/dL (1.7-2.3) H 02/11/20 13:16 Total Bilirubin 0.60 mg/dL (0.1-1.2) 02/11/20 13:16 AST 66 units/L (5-40) H 02/11/20 13:16 ALT 31 units/L (7-56) 02/11/20 13:16 Alkaline Phosphatase 142 units/L (35-129) H 02/11/20 13:16 Ammonia TNR 02/11/20 13:16 Total Creatine Kinase 3363 units/L (55-170) H 02/12/20 09:58 Total Protein 8.8 g/dL (6.3-8.2) H 02/11/20 13:16 Albumin 4.1 g/dL (3.9-5) 02/11/20 13:16 Albumin/Globulin Ratio 0.9 % 02/11/20 13:16 TSH 1.990 mlU/mL (0.270-4.200) 02/11/20 13:16 Urine Color Shaniqua (Yellow) 02/11/20 16:00 Urine Turbidity Slightly-cloudy (Clear) 02/11/20 16:00 Urine pH 5.0 (5.0-7.0) 02/11/20 16:00 Ur Specific Orwell 1.025 (1.003-1.030) 02/11/20 16:00 Urine Protein 100 mg/dl mg/dL (Negative) 02/11/20 16:00 Urine Glucose (UA) Neg mg/dL (Negative) 02/11/20 16:00 Urine Ketones 20 mg/dL (Negative) 02/11/20 16:00 Urine Blood Lg (Negative) 02/11/20 16:00 Urine Nitrite Neg (Negative) 02/11/20 16:00 Urine Bilirubin Neg (Negative) 02/11/20 16:00 Urine Urobilinogen 4.0 mg/dL (<2.0) 02/11/20 16:00 Ur Leukocyte Esterase Neg (Negative) 02/11/20 16:00 Urine WBC (Auto) 2.0 /HPF (0.0-6.0) 02/11/20 16:00 Urine RBC (Auto) 3.0 /HPF (0.0-6.0) 02/11/20 16:00 U Epithel Cells (Auto) 1.0 /HPF (0-13.0) 02/11/20 16:00 Urine Mucus Few /HPF 02/11/20 16:00 Salicylates < 0.3 mg/dL (2.8-20.0) L 02/11/20 13:16 Urine Opiates Screen Presumptive negative 02/11/20 23:22 Urine Methadone Screen Presumptive negative 02/11/20 23:22 Acetaminophen 5.0 ug/mL (10.0-30.0) L 02/11/20 13:16 Ur Barbiturates Screen Presumptive negative 02/11/20 23:22 Ur Phencyclidine Scrn Presumptive negative 02/11/20 23:22 Ur Amphetamines Screen Presumptive negative 02/11/20 23:22 U Benzodiazepines Scrn Presumptive negative 02/11/20 23:22 Urine Cocaine Screen Presumptive negative 02/11/20 23:22 U Marijuana (THC) Screen Presumptive negative 02/11/20 23:22 Drugs of Abuse Note Disclamer 02/11/20 23:22 Plasma/Serum Alcohol < 0.01 % (0-0.07) 02/11/20 13:16 Gautam/IV: Voiding Method Urinal IV Catheter Type [Right Peripheral IV Antecubital] Active Medications - Current Medications Current Medications: Generic Name Dose Route Start Last Admin Trade Name Freq PRN Reason Stop Dose Admin Acetaminophen 650 mg 02/11/20 22:12 Tylenol PO Q4H PRN Pain MILD(1-3)/Fever >100.5/GARCIA Heparin Sodium (Porcine) 5,000 unit 02/12/20 06:00 02/13/20 06:31 Heparin SUB-Q 5,000 unit Q8HR YOLI Administration Sodium Chloride 1,000 mls @ 150 mls/hr 02/11/20 22:15 02/11/20 23:50 Nacl 0.9% 1000 Ml IV 150 mls/hr DIRECT YOLI Administration Magnesium Hydroxide 30 ml 02/11/20 22:12 Milk Of Magnesia PO Q4H PRN Constipation Ondansetron HCl 4 mg 02/11/20 22:12 Zofran IV Q8H PRN Nausea And Vomiting Risperidone 0.25 mg 02/12/20 12:00 02/12/20 21:38 Risperdal PO 0.25 mg BID YOLI Administration Sertraline HCl 25 mg 02/12/20 12:00 02/12/20 13:01 Zoloft PO 25 mg QDAY YOLI Administration Sodium Chloride 10 ml 02/12/20 10:00 02/12/20 21:38 Sodium Chloride Flush Syringe 10 Ml IV 10 ml BID YOLI Administration Sodium Chloride 10 ml 02/11/20 22:12 Sodium Chloride Flush Syringe 10 Ml IV PRN PRN LINE FLUSH Trazodone HCl 50 mg 02/12/20 22:00 02/12/20 21:38 Desyrel PO 50 mg QHS YOLI Administration Nutrition/Malnutrition Assess - Dietary Evaluation Nutrition/Malnutrition Findings: Nutrition Notes Start: 02/12/20 08:32 Freq: Status: Active Protocol: Document 02/12/20 08:32 LM (Rec: 02/12/20 08:49 LM [id number]) Nutrition Notes Need for Assessment generated from: MD Order,wind farm support specialist,MST Initial or Follow up Assessment Other Pertinent Diagnosis HIV, depression, dehydration, weakness Current Diet Regular Labs/Tests BUN 23 Cr 0.7 Pertinent Medications Reviewed Height 6 ft Weight 56.6 kg Fifty Six Body Weight (kg) 80.90 BMI 16.9 Weight Status Underweight Subjective/Other Information MD consult for diet education and RN screen for MST. Unable to reach pt by phone. Per RN notes pt is agitated. H&P states pt has has decreased PO intakes. 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 Ensure Enlive strawbwerry TID in diet order. Burn Absent Trauma Absent Minimum of two criteria Yes Energy Intake (non-severe) <75% Estimated Energy Requirement >7 days Reduced Vp Packaging Strength Measurably Reduced (severe) #1 Nutrition Diagnosis Malnutrition Etiology HIV, depression As Evidenced by Signs and Symptoms Pt with decreased PO intakes, weak seismic prospecting observer helper strength, BMI of 16. 9 Is patient on ventilator? No Is Patient Ambulatory and/or Out of Bed No REE-([facility]-confined to bed) 1802.244 Kcal/Kg value to use for calculation 39 Approximate Energy Requirements Using 2207 kcal/Kg Calculation Used for Recommendations Kcal/kg Additional Notes Protein: 68-86g (1.2-1.5g/kg) Fluid: 1ml/kcal Nutrition Intervention Change Diet Order: Continue regular Add Supplement/Snack (indicate name/kcal Ensure Enlive TID /protein ) Provides kCal: 1,050 Provides Protein (gm) 60 Goal #1 Meet at least 80% of energy and protein needs Goal #2 Wt gain/maintenance Anticipated Discharge Needs: Regular diet with ONS Follow-Up By: 02/14/20 Additional Comments F/U for PO/ONS intakes and tolerance
--- NOTE | 2020-02-13 08:50 | Progress Note ---
Subjective - Reason for Consult Consult date: 02/13/20 Reason for consult: depression - Chief Complaint Chief complaint: The patient's medical record was reviewed and the patient's progress was discussed with the nursing staff. The sitter at bedside states the patient has been resting quietly this morning. During my interview with the patient this morning he is awake in bed eating breakfast. The sitter is assisting him. He is a/o x 1. He is calm and cooperative. The patient says he's "moving out away from boyfriend." He says he "feels pretty good." The patient denies any hallucinations of any kind. He also denies SI/HI, stating , "no, hell no." REVIEW OF SYSTEMS Constitutional: Negative for weight loss ENT: Negative for stridor Respiratory: Negative for cough or hemoptysis All other systems reviewed and are negative MENTAL STATUS EXAMINATION General Appearance: Dressed appropriately Behavior: Calm and cooperative, good eye contact Mood: "pretty good" Affect and affective range: Congruent with stated mood Thought Process: goal directed, tangential Speech: tangential Suicidal Ideation: Denies Homicidal Ideation: Denies Hallucinations: Denies Delusions: None elicited Insight and Judgment: Limited Memory/Cognition: impaired Attention: Normal Orientation: Alert, oriented x 1 Assessment Major Depressive Disorder Altered Mental Status PLAN Continue previously prescribed medications. Sitter: Defer to primary Medical: Per primary Disposition: The patient does not meet the requirement for acute inpatient psychiatric treatment at this time. It is my clinical opinion that the patient's mentation is due to underlying acute and complex medical conditions; Rhabdo/CK 3363, Metabolic encephalopathy, severe dehydration, HIV with unknown CD4 count, and severe malnutrition with BMI 16.9. Will sign off. Please place another consult if needed in the future. Thank you for this consult Mental Status Exam - Vital signs Last Vital Signs Temp 98.4 F 02/13/20 05:26 Pulse 89 02/13/20 05:26 Resp 20 02/13/20 05:26 BP 123/76 02/13/20 05:26 Pulse Ox 97 02/13/20 05:26
[2020-02-13] MEDS: SERTRALINE 25 MG TAB PO SCH (09:47)
[2020-02-13] MEDS: risperiDONE 0.25 MG TAB PO SCH ×2 (09:47→21:35)
--- NOTE | 2020-02-13 10:58 | Consultation ---
History of Present Illness - Reason for Consult Consult date: 02/13/20 HIV/?CD4 Requesting physician: CONNOR BAKER - History of Present Illness 44 years old male with history of depression, HIV infection diagnosed in 2006, noncompliance, and off ART for 13 years, admitted on due to generalized weakness, poor p.o. intake and refusing medications. Patient reports he went to [facility] on 01/21/2020 and was immediately made 1013 and sent to [facility]. Patient denies any recent fever, chills, cough, shortness of breath, nausea, vomiting. History is difficult given patient tangential speech, reporting hallucination," I am seeing dogs", currently denying suicidal ideation. Patient also reporting being upset at [facility] due to poor care, nurses left him urinated 4 hours, " I am suing [facility]". He currently lives with his boyfriend and brother. He is not the best historian and cannot explain why he is not taking ART for 13 years. On arrival, he was afebrile, vital signs stable. Initial WBC 5.5. Hemoglobin 12.4. AST 66. CK 1900, went up to 3000. Urinalysis negative. UDS negative. Chest x-ray unremarkable. Review of Systems: positive in bold print -limited due to altered mental status General: + Generalized weakness + poor appetite Cutaneous: rash, pruritus Head: headaches or injury Eyes: changes in vision, eye pain, double vision Ears: ear pain, ear discharge, ringing or hearing loss Nose: nose bleeding, stuffiness Mouth & throat: bleeding gums, horseness, no dental problems, or swollen glands Neck: no pain, node enlargement/lumps, tyroid enlargement or tenderness Respiratory: SOB, cough, MONTANO, wheezing, sputum, hemoptysis, pleuritic chest pain Cardiovascular: chest pain, leg edema, cyanosis, MONTANO, orthopnea Musculoskeletal: edema, deformities, pain Gastrointestinal: nausea, vomiting, hematemesis, diarrhea, constipation, melena, bright red blood in stools, fecal incontinence, jaundice Genitourinary/Reproductive: frequent urination, dysuria, hematuria, incontinence Neurogical: seizures, headaches, weakness, paresthesias, loss of speech or vision; memory loss, vertigo, tremors, numbness Psychiatric: + Depressive mood + hallucinations Past History Past Medical History: other (depression,HIV) Past Surgical History: No surgical history Social history: no significant social history Family history: no significant family history Medications and Allergies Allergies Allergy/AdvReac Type Severity Reaction Status Date / Time No Known Allergies Allergy Unverified 02/11/20 16:08 Home Medications Medication Instructions Recorded Confirmed Last Taken Type No Known Home Medications [No 02/13/20 02/13/20 Unknown History Reported Home Medications] Active Meds: Active Medications Acetaminophen (Tylenol) 650 mg PO Q4H PRN PRN Reason: Pain MILD(1-3)/Fever >100.5/GARCIA Heparin Sodium (Porcine) (Heparin) 5,000 unit SUB-Q Q8HR [facility] Last Admin: 02/13/20 06:31 Dose: 5,000 unit Documented by: Sodium Chloride (Nacl 0.9% 1000 Ml) 1,000 mls @ 150 mls/hr IV DIRECT [facility] Last Admin: 02/11/20 23:50 Dose: 150 mls/hr Documented by: Magnesium Hydroxide (Milk Of Magnesia) 30 ml PO Q4H PRN PRN Reason: Constipation Ondansetron HCl (Zofran) 4 mg IV Q8H PRN PRN Reason: Nausea And Vomiting Risperidone (Risperdal) 0.25 mg PO BID [facility] Last Admin: 02/13/20 09:47 Dose: 0.25 mg Documented by: Sertraline HCl (Zoloft) 25 mg PO QDAY [facility] Last Admin: 02/13/20 09:47 Dose: 25 mg Documented by: Sodium Chloride (Sodium Chloride Flush Syringe 10 Ml) 10 ml IV BID [facility] Last Admin: 02/13/20 09:47 Dose: 10 ml Documented by: Sodium Chloride (Sodium Chloride Flush Syringe 10 Ml) 10 ml IV PRN PRN PRN Reason: LINE FLUSH Trazodone HCl (Desyrel) 50 mg PO QHS [facility] Last Admin: 02/12/20 21:38 Dose: 50 mg Documented by: Physical Examination - Physical Exam Narrative exam: General appearance: Alert in NAD mildly agitated Eyes: anicteric sclerae, moist conjunctivae; no lid-lag; PERRLA HENT: Atraumatic; oropharynx clear with moist mucous membranes and no oral thrush; normal hard and soft palate. Lungs: CTA CV: RRR no murmur Abdomen: Soft, non-tender Extremities: no edema, no cyanosis Skin: No rash. Psych: Rapid speech, tangential, visual hallucinations, paranoia Neuro: alert and oriented x 3. Moving all extermities - Constitutional Vitals: Vital Signs Temp Pulse Resp BP Pulse Ox 98.4 F 89 20 123/76 97 02/13/20 05:26 02/13/20 05:26 02/13/20 05:26 02/13/20 05:02/13/20 05:26 Temperature -Last 24 Hours Temperature 98.4 F Temperature 98.5 F Temperature 98.4 F Temperature 98.4 F Results - Labs CBC & Chem 7: 02/12/20 09:58 02/12/20 09:58 Labs: Abnormal lab results 02/12/20 02/12/20 02/12/20 Range/Units 09:58 09:58 09:58 WBC 3.9 L (4.5-11.0) K/mm3 Monocytes % (Manual) 12.0 H (0.0-7.3) % Lymphocytes # (Manual) 0.7 L (1.2-5.4) K/mm3 Chloride 110.2 H (98-107) mmol/L Carbon Dioxide 20 L (22-30) mmol/L Creatinine 0.7 L (0.8-1.3) mg/dL Total Creatine Kinase 3363 H (55-170) units/L Assessment and Plan Cultures: None Assessment: 44 years old male with history of depression, HIV infection, noncompliance, and off ART for 13 years, admitted on due to generalized weakness, poor p.o. intake and refusing medications: #HIV infection: Diagnosed in 2006, been off ART for 13 years, unknown CD4 viral load. When asked if he was interested to start ART he said "yes", but " I want the pill right now, bring me the pill now", " I do not want to go to the HIV clinic" #Dehydration/rhabdomyolysis: Patient was recently admitted to a psych facility with depressive symptoms and poor p.o. intake. #Depressive symptoms/visual hallucinations: Needs psychiatric evaluation #Elevated AST: Likely due to rhabdomyolysis. Recommendations: -Needs psychiatric evaluation -will obtain CD4 and viral load -May need PCP prophylaxis -At this point, patient is not mentally stable to commit to take his HIV medications or follow-up with HIV clinic, will reevaluate after stabilization of his psychiatric condition, [id number] Dr. Arredondo is rounding tomorrow Will follow. Nava Mcdowell MD Infectious Diseases Host/Hostess Head [facility] M [phone] O [phone]
[2020-02-13 11:54] LABS: Blood Urea Nitrogen 7 mg/dL (9-20); Calcium 9.4 mg/dL (8.4-10.2); Hemolysis Index 44
[2020-02-13 11:55] LABS: BUN/Creatinine Ratio 10
[2020-02-13] MEDS: traZODone 50 MG TAB PO SCH (21:36)
[2020-02-14] MEDS: HEPARIN 5,000 UNIT/1 ML VIAL SUB-Q SCH ×3 (05:42→21:09)
[2020-02-14 07:48] LABS: Blood Urea Nitrogen 8 mg/dL (9-20); Calcium 9.4 mg/dL (8.4-10.2); Hemolysis Index 9
[2020-02-14 07:49] LABS: BUN/Creatinine Ratio 13
[2020-02-14] MEDS ORDERED: POTASSIUM CHLORIDE ER 10 MEQ TAB PO SCH (08:09)
[2020-02-14] MEDS ORDERED: POTASSIUM CHLORIDE ER 10 MEQ TAB PO NR (09:00)
[2020-02-14] MEDS: risperiDONE 0.25 MG TAB PO SCH ×2 (09:27→21:09)
[2020-02-14] MEDS: SERTRALINE 25 MG TAB PO SCH (09:28)
--- NOTE | 2020-02-14 13:53 | Progress Note ---
Assessment and Plan Assessment: 44 year-old man with history of depression, HIV infection, noncompliance, and off ART for 13 years, admitted on due to generalized weakness, poor p.o. intake and refusing medications: #HIV infection: Diagnosed in 2006, been off ART for 13 years, unknown CD4 viral load. When asked if he was interested to start ART he said "yes", but " I want the pill right now, bring me the pill now", " I do not want to go to the HIV clinic" #Dehydration/rhabdomyolysis: Patient was recently admitted to a psych facility with depressive symptoms and poor p.o. intake. #Depressive symptoms/visual hallucinations: Psychiatry recommended acute inpatient psychiatry treatment. #Elevated AST: Likely due to rhabdomyolysis. Recommendations: -Follow-up CD4 and viral load -May need PCP prophylaxis -Psychiatry recommended acute inpatient psychiatry treatment -F/U HIV genotype, once results available, potentially can start on p.o. Biktarvy which will need to be continued at the psych facility. Biktarvy least likely to have drug interactions with psych meds -will need to be set up with [facility] or [facility] Carolyn Arredondo MD, FACP [facility] C: [phone] O: [phone] F: [phone] Subjective Date of service: 02/14/20 Interval history: No fever. Asking me to "free" him. Says he has been stuck here. I told him I am his infectious disease doctor taking over his inpatient care. He wants me to give him a prescription for HIV meds. Doesn't give me an answer why he hasn't been taking his meds or following up. Sitter at bedside. Objective - Exam Narrative Exam: Physical Exam: Constitutional: awake, alert. No acute distress Head, Ears, Nose: Normocephalic, atraumatic. External ears, nose normal Eyes: Conjunctivae/corneas clear. No icterus. No ptosis. Neck: Supple, no meningeal signs Cardiovascular: S1, S2 normal. Respiratory: Good air entry, clear to auscultation bilaterally GI: Soft, non-tender; bowel sounds normal. No peritoneal signs Musculoskeletal: No pedal edema, no cyanosis. Skin: No rash or abscess Hem/Lymphatic: No palpable cervical or supraclavicular nodes. No lymphangitis Psych: tangential speech, flat affect Neurological: Awake, alert. - Constitutional Vitals: Vital Signs Temp Pulse Resp BP Pulse Ox 98.2 F 80 18 134/77 100 02/14/20 10:15 02/14/20 10:15 02/14/20 10:15 02/14/20 10:15 02/14/20 10:15 Temperature -Last 24 Hours Temperature 98.2 F Temperature 97.9 F Temperature 97.9 F Temperature 97.9 F Temperature 98.1 F - Labs CBC & Chem 7: 02/12/20 09:58 02/14/20 06:51 Labs: Abnormal lab results 02/14/20 Range/Units 06:51 Potassium 3.5 L (3.6-5.0) mmol/L BUN 8 L (9-20) mg/dL Creatinine 0.6 L (0.8-1.3) mg/dL Total Creatine Kinase 755 H (55-170) units/L
[2020-02-14] MEDS: SODIUM CHLORIDE 0.9% 1000 ML 1,000 ML IV SCH ×2 (15:52→21:18)
--- NOTE | 2020-02-14 17:07 | Progress Note ---
Assessment and Plan Assessment and plan: --Rhabdomyolysis /elevated CK -[id number] Current Visit: Yes Status: Acute Plan to address problem: Continue rigorous IV hydration, input output monitoring, follow renal function Monitor CK levels, plenty of oral fluids --Metabolic encephalopathy; Current Visit: Yes Status: Acute Plan to address problem: Patient is still confused every now and then, Psych following, talkative repeats his words Refusing treatment --Severe depression[sent from [facility]] Current Visit: Yes Status: Acute Plan to address problem: Management per psych Patient is 1013 status[came from [place]] --Severe dehydration Current Visit: Yes Status: Acute Plan to address problem: Continue IV hydration Encourage plenty oral fluids --HIV/on antiretrovirals, unknown CD4/viral counts Current Visit: Yes Status: Acute Plan to address problem: ID following ,unknown CD4 count and viral load Patient is mentally not stable, with confusion off and on Refusing treatment, may not be a candidate for aggressive management HIV At this point, ID following --Severe malnutrition; BMI 16.9 Current Visit: Yes Status: Acute Plan to address problem: nutrition supplements, supportive care, nutrition consult --DVT prophylaxis Current Visit: Yes Status: Acute Plan to address problem: Patient placed on subcutaneous heparin. -- Full code status Current Visit: Yes Status: Acute We will closely monitor the patient and adjust the management as needed Patient is 1013 status, follow ID and psych evaluation and recommendations [facility] initially recommended inpatient psych placement , later signed off yesterday Reconsult psych, for re-evaluation and clearance for safe discharge from psych perspective. Patient was sent from [place] Discharge back to [place] vs inpatient psych vs home, Discharge planning per case management; DC back to [place]/inpatient psych facility/home with home health Plan of care reviewed with the patient's nurse and the case management History Interval history: I have seen and examined the patient at the bedside Patient is confused, repeating after himself, talking irrelevantly Refusing treatment, and 1013 status Vital signs noted Hospitalist Physical - Constitutional Vitals: Temp Pulse Resp BP Pulse Ox 98.0 F 83 20 130/80 100 02/14/20 16:30 02/14/20 16:30 02/14/20 16:30 02/14/20 16:30 02/14/20 16:30 General appearance: Present: no acute distress, well-nourished, other (Talks excessively, repeats the same sentences, refusing treatment) - EENT Eyes: Present: PERRL, EOM intact - Neck Neck: Present: supple, normal ROM - Respiratory Respiratory effort: normal Respiratory: bilateral: diminished, negative: rales, rhonchi, wheezing - Cardiovascular Rhythm: regular Heart Sounds: Present: S1 & S2 - Extremities Extremities: no ischemia, No edema - Abdominal General gastrointestinal: soft, non-tender, non-distended, normal bowel sounds - Integumentary Integumentary: Present: clear, warm - Psychiatric Psychiatric: depressed, other (Excessive talking, irrelevant talk) - Neurologic Neurologic: moves all extremities Results - Labs CBC & Chem 7: 02/12/20 09:58 02/14/20 06:51 Labs: Laboratory Last Values WBC 3.9 K/mm3 (4.5-11.0) L 02/12/20 09:58 RBC 3.48 M/mm3 (3.65-5.03) L 02/12/20 09:58 Hgb 11.0 gm/dl (11.8-15.2) L 02/12/20 09:58 Hct 31.3 % (35.5-45.6) L 02/12/20 09:58 MCV 90 fl (84-94) 02/12/20 09:58 MCH 32 pg (28-32) 02/12/20 09:58 MCHC 35 % (32-34) H 02/12/20 09:58 RDW 15.6 % (13.2-15.2) H 02/12/20 09:58 Plt Count 218 K/mm3 (140-440) 02/12/20 09:58 Lymph % (Auto) 11.0 % (13.4-35.0) L 02/11/20 13:16 [place] % (Auto) 11.4 % (0.0-7.3) H 02/11/20 13:16 Eos % (Auto) 0.2 % (0.0-4.3) 02/11/20 13:16 Baso % (Auto) 0.2 % (0.0-1.8) 02/11/20 13:16 Lymph # (Auto) 0.6 K/mm3 (1.2-5.4) L 02/11/20 13:16 [place] # (Auto) 0.6 K/mm3 (0.0-0.8) 02/11/20 13:16 Eos # (Auto) 0.0 K/mm3 (0.0-0.4) 02/11/20 13:16 Baso # (Auto) 0.0 K/mm3 (0.0-0.1) 02/11/20 13:16 Add Manual Diff Complete 02/12/20 09:58 Total Counted 100 02/12/20 09:58 Seg Neutrophils % 77.2 % (40.0-70.0) H 02/11/20 13:16 Seg Neuts % (Manual) 65.0 % (40.0-70.0) 02/12/20 09:58 Band Neutrophils % 3.0 % 02/12/20 09:58 Lymphocytes % (Manual) 19.0 % (13.4-35.0) 02/12/20 09:58 Reactive Lymphs % (Man) 0 % 02/12/20 09:58 Monocytes % (Manual) 12.0 % (0.0-7.3) H 02/12/20 09:58 Eosinophils % (Manual) 1.0 % (0.0-4.3) 02/12/20 09:58 Basophils % (Manual) 0 % (0.0-1.8) 02/12/20 09:58 Metamyelocytes % 0 % 02/12/20 09:58 Myelocytes % 0 % 02/12/20 09:58 Promyelocytes % 0 % 02/12/20 09:58 Blast Cells % 0 % 02/12/20 09:58 Nucleated RBC % Not Reportable 02/12/20 09:58 Seg Neutrophils # 4.3 K/mm3 (1.8-7.7) 02/11/20 13:16 Seg Neutrophils # Man 2.5 K/mm3 (1.8-7.7) 02/12/20 09:58 Band Neutrophils # 0.1 K/mm3 02/12/20 09:58 Lymphocytes # (Manual) 0.7 K/mm3 (1.2-5.4) L 02/12/20 09:58 Abs React Lymphs (Man) 0.0 K/mm3 02/12/20 09:58 Monocytes # (Manual) 0.5 K/mm3 (0.0-0.8) 02/12/20 09:58 Eosinophils # (Manual) 0.0 K/mm3 (0.0-0.4) 02/12/20 09:58 Basophils # (Manual) 0.0 K/mm3 (0.0-0.1) 02/12/20 09:58 Metamyelocytes # 0.0 K/mm3 02/12/20 09:58 Myelocytes # 0.0 K/mm3 02/12/20 09:58 Promyelocytes # 0.0 K/mm3 02/12/20 09:58 Blast Cells # 0.0 K/mm3 02/12/20 09:58 WBC Morphology Not Reportable 02/12/20 09:58 Hypersegmented Neuts Not Reportable 02/12/20 09:58 Hyposegmented Neuts Not Reportable 02/12/20 09:58 Hypogranular Neuts Not Reportable 02/12/20 09:58 Smudge Cells Not Reportable 02/12/20 09:58 Toxic Granulation Not Reportable 02/12/20 09:58 Toxic Vacuolation Not Reportable 02/12/20 09:58 Dohle Bodies Not Reportable 02/12/20 09:58 Pelger-Huet Anomaly Not Reportable 02/12/20 09:58 Thor Rods Not Reportable 02/12/20 09:58 Platelet Estimate Consistent w auto 02/12/20 09:58 Clumped Platelets Not Reportable 02/12/20 09:58 Plt Clumps, EDTA Not Reportable 02/12/20 09:58 Large Platelets Not Reportable 02/12/20 09:58 Giant Platelets Not Reportable 02/12/20 09:58 Platelet Satelliting Not Reportable 02/12/20 09:58 Plt Morphology Comment Not Reportable 02/12/20 09:58 RBC Morphology Not Reportable 02/12/20 09:58 Dimorphic RBCs Not Reportable 02/12/20 09:58 Polychromasia Not Reportable 02/12/20 09:58 Hypochromasia Not Reportable 02/12/20 09:58 Poikilocytosis Not Reportable 02/12/20 09:58 Anisocytosis Few 02/12/20 09:58 Microcytosis Few 02/12/20 09:58 Macrocytosis Few 02/12/20 09:58 Spherocytes Not Reportable 02/12/20 09:58 Pappenheimer Bodies Not Reportable 02/12/20 09:58 Sickle Cells Not Reportable 02/12/20 09:58 Target Cells Not Reportable 02/12/20 09:58 Tear Drop Cells Not Reportable 02/12/20 09:58 Ovalocytes Not Reportable 02/12/20 09:58 Helmet Cells Not Reportable 02/12/20 09:58 [place] Bodies Not Reportable 02/12/20 09:58 [place] Rings Not Reportable 02/12/20 09:58 Marko Cells Not Reportable 02/12/20 09:58 Bite Cells Not Reportable 02/12/20 09:58 Crenated Cell Not Reportable 02/12/20 09:58 Elliptocytes Not Reportable 02/12/20 09:58 Acanthocytes (Spur) Not Reportable 02/12/20 09:58 Rouleaux Not Reportable 02/12/20 09:58 Hemoglobin C Crystals Not Reportable 02/12/20 09:58 Schistocytes Not Reportable 02/12/20 09:58 Malaria parasites Not Reportable 02/12/20 09:58 Prabhjot Bodies Not Reportable 02/12/20 09:58 Hem Pathologist Commnt No 02/12/20 09:58 PT 14.6 Sec. (12.2-14.9) 02/12/20 09:58 INR 1.13 (0.87-1.13) 02/12/20 09:58 Sodium 139 mmol/L (137-145) 02/14/20 06:51 Potassium 3.5 mmol/L (3.6-5.0) L 02/14/20 06:51 Chloride 103.5 mmol/L (98-107) 02/14/20 06:51 Carbon Dioxide 23 mmol/L (22-30) 02/14/20 06:51 Anion Gap 16 mmol/L 02/14/20 06:51 BUN 8 mg/dL (9-20) L 02/14/20 06:51 Creatinine 0.6 mg/dL (0.8-1.3) L 02/14/20 06:51 Estimated GFR > 60 ml/min 02/14/20 06:51 BUN/Creatinine Ratio 13 % 02/14/20 06:51 Glucose 89 mg/dL (75-100) 02/14/20 06:51 Calcium 9.4 mg/dL (8.4-10.2) 02/14/20 06:51 Phosphorus 3.60 mg/dL (2.5-4.5) 02/13/20 10:38 Magnesium 1.90 mg/dL (1.7-2.3) 02/13/20 10:38 Total Bilirubin 0.60 mg/dL (0.1-1.2) 02/11/20 13:16 AST 66 units/L (5-40) H 02/11/20 13:16 ALT 31 units/L (7-56) 02/11/20 13:16 Alkaline Phosphatase 142 units/L (35-129) H 02/11/20 13:16 Ammonia TNR 02/11/20 13:16 Total Creatine Kinase 755 units/L (55-170) H 02/14/20 06:51 Total Protein 8.8 g/dL (6.3-8.2) H 02/11/20 13:16 Albumin 4.1 g/dL (3.9-5) 02/11/20 13:16 Albumin/Globulin Ratio 0.9 % 02/11/20 13:16 TSH 1.990 mlU/mL (0.270-4.200) 02/11/20 13:16 Urine Color Shaniqua (Yellow) 02/11/20 16:00 Urine Turbidity Slightly-cloudy (Clear) 02/11/20 16:00 Urine pH 5.0 (5.0-7.0) 02/11/20 16:00 Ur Specific [place] 1.025 (1.003-1.030) 02/11/20 16:00 Urine Protein 100 mg/dl mg/dL (Negative) 02/11/20 16:00 Urine Glucose (UA) Neg mg/dL (Negative) 02/11/20 16:00 Urine Ketones 20 mg/dL (Negative) 02/11/20 16:00 Urine Blood Lg (Negative) 02/11/20 16:00 Urine Nitrite Neg (Negative) 02/11/20 16:00 Urine Bilirubin Neg (Negative) 02/11/20 16:00 Urine Urobilinogen 4.0 mg/dL (<2.0) 02/11/20 16:00 Ur Leukocyte Esterase Neg (Negative) 02/11/20 16:00 Urine WBC (Auto) 2.0 /HPF (0.0-6.0) 02/11/20 16:00 Urine RBC (Auto) 3.0 /HPF (0.0-6.0) 02/11/20 16:00 U Epithel Cells (Auto) 1.0 /HPF (0-13.0) 02/11/20 16:00 Urine Mucus Few /HPF 02/11/20 16:00 Salicylates < 0.3 mg/dL (2.8-20.0) L 02/11/20 13:16 Urine Opiates Screen Presumptive negative 02/11/20 23:22 Urine Methadone Screen Presumptive negative 02/11/20 23:22 Acetaminophen 5.0 ug/mL (10.0-30.0) L 02/11/20 13:16 Ur Barbiturates Screen Presumptive negative 02/11/20 23:22 Ur Phencyclidine Scrn Presumptive negative 02/11/20 23:22 Ur Amphetamines Screen Presumptive negative 02/11/20 23:22 U Benzodiazepines Scrn Presumptive negative 02/11/20 23:22 Urine Cocaine Screen Presumptive negative 02/11/20 23:22 U Marijuana (THC) Screen Presumptive negative 02/11/20 23:22 Drugs of Abuse Note Disclamer 02/11/20 23:22 Plasma/Serum Alcohol < 0.01 % (0-0.07) 02/11/20 13:16 Gautam/IV: Voiding Method Incontinent IV Catheter Type [Right Wrist] Peripheral IV IV Catheter Type [Right Peripheral IV Antecubital] Active Medications - Current Medications Current Medications: Generic Name Dose Route Start Last Admin Trade Name Freq PRN Reason Stop Dose Admin Acetaminophen 650 mg 02/11/20 22:12 02/13/20 17:37 Tylenol PO 650 mg Q4H PRN Administration Pain MILD(1-3)/Fever >100.5/GARCIA Heparin Sodium (Porcine) 5,000 unit 02/12/20 06:00 02/14/20 15:51 Heparin SUB-Q Not Given Q8HR YOLI Sodium Chloride 1,000 mls @ 150 mls/hr 02/11/20 22:15 02/14/20 15:52 Nacl 0.9% 1000 Ml IV 150 mls/hr DIRECT YOLI Administration Magnesium Hydroxide 30 ml 02/11/20 22:12 Milk Of Magnesia PO Q4H PRN Constipation Ondansetron HCl 4 mg 02/11/20 22:12 Zofran IV Q8H PRN Nausea And Vomiting Risperidone 0.25 mg 02/12/20 12:00 02/14/20 09:27 Risperdal PO 0.25 mg BID YOLI Administration Sertraline HCl 25 mg 02/12/20 12:00 02/14/20 09:28 Zoloft PO 25 mg QDAY YOLI Administration Sodium Chloride 10 ml 02/12/20 10:00 02/14/20 09:28 Sodium Chloride Flush Syringe 10 Ml IV 10 ml BID YOLI Administration Sodium Chloride 10 ml 02/11/20 22:12 Sodium Chloride Flush Syringe 10 Ml IV PRN PRN LINE FLUSH Trazodone HCl 50 mg 02/12/20 22:00 02/13/20 21:36 Desyrel PO 50 mg QHS YOLI Administration Nutrition/Malnutrition Assess - Dietary Evaluation Nutrition/Malnutrition Findings: Nutrition Notes Start: 02/12/20 08:32 Freq: Status: Active Protocol: Document 02/14/20 13:14 (Rec: 02/14/20 13:20 [id number]) Co-Sign 02/14/20 13:14 LP Nutrition Notes Initial or Follow up Reassessment Other Pertinent Diagnosis HIV, depression, dehydration, weakness Current Diet Regular Labs/Tests K 3.5 BUN 8 Cr 0.6 Pertinent Medications K-Dur Height 6 ft Weight 61 kg [place] Body Weight (kg) 80.90 BMI 18.2 Weight change and time frame Wt change noted Subjective/Other Information FU for intakes. Pt is very agitated. Pt reports not liking the food or ONS and not being able to taste very well . Pt given Ensure Clear Mixed [place] and likes however refused to consume it, breakfast and lunch. Pt requested chopped meats. Unable to obtain weight or diet hx. Percent of energy/protein needs met: 0%/0% Burn Absent Trauma Absent Minimum of two criteria Yes Energy Intake (non-severe) <75% Estimated Energy Requirement >7 days Reduced [employer] Strength Measurably Reduced (severe) #1 Nutrition Diagnosis Malnutrition Diagnosis Progress(for reassessment Continues documentation) Is patient on ventilator? No Is Patient Ambulatory and/or Out of Bed No REE-([facility]-confined to bed) 1854.996 Kcal/Kg value to use for calculation 39 Approximate Energy Requirements Using 2379 kcal/Kg Calculation Used for Recommendations Kcal/kg Additional Notes Protein: 68-86g (1.2-1.5g/kg) Fluid: 1ml/kcal Nutrition Intervention Change Diet Order: Continue regular Add Supplement/Snack (indicate name/kcal Change to Ensure Mixed [place] /protein ) TID. Provides kCal: 720 Provides Protein (gm) 27 Goal #1 Meet at least 80% of protein and energy needs via PO and ONS intakes Goal #2 Wt gain/maintenance Anticipated Discharge Needs: Regular with ONS Follow-Up By: 02/16/20 Additional Comments F/U for PO/ONS intakes and tolerance
--- NOTE | 2020-02-14 17:13 | Progress Note ---
History Interval history: I have seen and examined the patient at the bedside Patient's chart and medications reviewed Patient is alert and awake, hypervigilant Excessive talking, repeating the words Vital signs noted Hospitalist Physical - Constitutional Vitals: Temp Pulse Resp BP Pulse Ox 98.0 F 83 20 130/80 100 02/14/20 16:30 02/14/20 16:30 02/14/20 16:30 02/14/20 16:30 02/14/20 16:30 General appearance: Present: no acute distress, well-nourished, other (Talks excessively, repeats the same sentences, refusing treatment) - EENT Eyes: Present: PERRL, EOM intact - Neck Neck: Present: supple, normal ROM - Respiratory Respiratory effort: normal Respiratory: bilateral: diminished, negative: rales, rhonchi, wheezing - Cardiovascular Rhythm: regular Heart Sounds: Present: S1 & S2 - Extremities Extremities: no ischemia, No edema - Abdominal General gastrointestinal: soft, non-tender, non-distended, normal bowel sounds - Integumentary Integumentary: Present: clear, warm - Psychiatric Psychiatric: appropriate mood/affect, cooperative - Neurologic Neurologic: CNII-XII intact, moves all extremities Results - Labs CBC & Chem 7: 02/12/20 09:58 02/14/20 06:51 Labs: Laboratory Last Values WBC 3.9 K/mm3 (4.5-11.0) L 02/12/20 09:58 RBC 3.48 M/mm3 (3.65-5.03) L 02/12/20 09:58 Hgb 11.0 gm/dl (11.8-15.2) L 02/12/20 09:58 Hct 31.3 % (35.5-45.6) L 02/12/20 09:58 MCV 90 fl (84-94) 02/12/20 09:58 MCH 32 pg (28-32) 02/12/20 09:58 MCHC 35 % (32-34) H 02/12/20 09:58 RDW 15.6 % (13.2-15.2) H 02/12/20 09:58 Plt Count 218 K/mm3 (140-440) 02/12/20 09:58 Lymph % (Auto) 11.0 % (13.4-35.0) L 02/11/20 13:16 Fleming % (Auto) 11.4 % (0.0-7.3) H 02/11/20 13:16 Eos % (Auto) 0.2 % (0.0-4.3) 02/11/20 13:16 Baso % (Auto) 0.2 % (0.0-1.8) 02/11/20 13:16 Lymph # (Auto) 0.6 K/mm3 (1.2-5.4) L 02/11/20 13:16 Fleming # (Auto) 0.6 K/mm3 (0.0-0.8) 02/11/20 13:16 Eos # (Auto) 0.0 K/mm3 (0.0-0.4) 02/11/20 13:16 Baso # (Auto) 0.0 K/mm3 (0.0-0.1) 02/11/20 13:16 Add Manual Diff Complete 02/12/20 09:58 Total Counted 100 02/12/20 09:58 Seg Neutrophils % 77.2 % (40.0-70.0) H 02/11/20 13:16 Seg Neuts % (Manual) 65.0 % (40.0-70.0) 02/12/20 09:58 Band Neutrophils % 3.0 % 02/12/20 09:58 Lymphocytes % (Manual) 19.0 % (13.4-35.0) 02/12/20 09:58 Reactive Lymphs % (Man) 0 % 02/12/20 09:58 Monocytes % (Manual) 12.0 % (0.0-7.3) H 02/12/20 09:58 Eosinophils % (Manual) 1.0 % (0.0-4.3) 02/12/20 09:58 Basophils % (Manual) 0 % (0.0-1.8) 02/12/20 09:58 Metamyelocytes % 0 % 02/12/20 09:58 Myelocytes % 0 % 02/12/20 09:58 Promyelocytes % 0 % 02/12/20 09:58 Blast Cells % 0 % 02/12/20 09:58 Nucleated RBC % Not Reportable 02/12/20 09:58 Seg Neutrophils # 4.3 K/mm3 (1.8-7.7) 02/11/20 13:16 Seg Neutrophils # Man 2.5 K/mm3 (1.8-7.7) 02/12/20 09:58 Band Neutrophils # 0.1 K/mm3 02/12/20 09:58 Lymphocytes # (Manual) 0.7 K/mm3 (1.2-5.4) L 02/12/20 09:58 Abs React Lymphs (Man) 0.0 K/mm3 02/12/20 09:58 Monocytes # (Manual) 0.5 K/mm3 (0.0-0.8) 02/12/20 09:58 Eosinophils # (Manual) 0.0 K/mm3 (0.0-0.4) 02/12/20 09:58 Basophils # (Manual) 0.0 K/mm3 (0.0-0.1) 02/12/20 09:58 Metamyelocytes # 0.0 K/mm3 02/12/20 09:58 Myelocytes # 0.0 K/mm3 02/12/20 09:58 Promyelocytes # 0.0 K/mm3 02/12/20 09:58 Blast Cells # 0.0 K/mm3 02/12/20 09:58 WBC Morphology Not Reportable 02/12/20 09:58 Hypersegmented Neuts Not Reportable 02/12/20 09:58 Hyposegmented Neuts Not Reportable 02/12/20 09:58 Hypogranular Neuts Not Reportable 02/12/20 09:58 Smudge Cells Not Reportable 02/12/20 09:58 Toxic Granulation Not Reportable 02/12/20 09:58 Toxic Vacuolation Not Reportable 02/12/20 09:58 Dohle Bodies Not Reportable 02/12/20 09:58 Pelger-Huet Anomaly Not Reportable 02/12/20 09:58 Thor Rods Not Reportable 02/12/20 09:58 Platelet Estimate Consistent w auto 02/12/20 09:58 Clumped Platelets Not Reportable 02/12/20 09:58 Plt Clumps, EDTA Not Reportable 02/12/20 09:58 Large Platelets Not Reportable 02/12/20 09:58 Giant Platelets Not Reportable 02/12/20 09:58 Platelet Satelliting Not Reportable 02/12/20 09:58 Plt Morphology Comment Not Reportable 02/12/20 09:58 RBC Morphology Not Reportable 02/12/20 09:58 Dimorphic RBCs Not Reportable 02/12/20 09:58 Polychromasia Not Reportable 02/12/20 09:58 Hypochromasia Not Reportable 02/12/20 09:58 Poikilocytosis Not Reportable 02/12/20 09:58 Anisocytosis Few 02/12/20 09:58 Microcytosis Few 02/12/20 09:58 Macrocytosis Few 02/12/20 09:58 Spherocytes Not Reportable 02/12/20 09:58 Pappenheimer Bodies Not Reportable 02/12/20 09:58 Sickle Cells Not Reportable 02/12/20 09:58 Target Cells Not Reportable 02/12/20 09:58 Tear Drop Cells Not Reportable 02/12/20 09:58 Ovalocytes Not Reportable 02/12/20 09:58 Helmet Cells Not Reportable 02/12/20 09:58 [place] Bodies Not Reportable 02/12/20 09:58 Mchenry Rings Not Reportable 02/12/20 09:58 [place] Cells Not Reportable 02/12/20 09:58 Bite Cells Not Reportable 02/12/20 09:58 Crenated Cell Not Reportable 02/12/20 09:58 Elliptocytes Not Reportable 02/12/20 09:58 Acanthocytes (Spur) Not Reportable 02/12/20 09:58 Rouleaux Not Reportable 02/12/20 09:58 Hemoglobin C Crystals Not Reportable 02/12/20 09:58 Schistocytes Not Reportable 02/12/20 09:58 Malaria parasites Not Reportable 02/12/20 09:58 Prabhjot Bodies Not Reportable 02/12/20 09:58 Hem Pathologist Commnt No 02/12/20 09:58 PT 14.6 Sec. (12.2-14.9) 02/12/20 09:58 INR 1.13 (0.87-1.13) 02/12/20 09:58 Sodium 139 mmol/L (137-145) 02/14/20 06:51 Potassium 3.5 mmol/L (3.6-5.0) L 02/14/20 06:51 Chloride 103.5 mmol/L (98-107) 02/14/20 06:51 Carbon Dioxide 23 mmol/L (22-30) 02/14/20 06:51 Anion Gap 16 mmol/L 02/14/20 06:51 BUN 8 mg/dL (9-20) L 02/14/20 06:51 Creatinine 0.6 mg/dL (0.8-1.3) L 02/14/20 06:51 Estimated GFR > 60 ml/min 02/14/20 06:51 BUN/Creatinine Ratio 13 % 02/14/20 06:51 Glucose 89 mg/dL (75-100) 02/14/20 06:51 Calcium 9.4 mg/dL (8.4-10.2) 02/14/20 06:51 Phosphorus 3.60 mg/dL (2.5-4.5) 02/13/20 10:38 Magnesium 1.90 mg/dL (1.7-2.3) 02/13/20 10:38 Total Bilirubin 0.60 mg/dL (0.1-1.2) 02/11/20 13:16 AST 66 units/L (5-40) H 02/11/20 13:16 ALT 31 units/L (7-56) 02/11/20 13:16 Alkaline Phosphatase 142 units/L (35-129) H 02/11/20 13:16 Ammonia TNR 02/11/20 13:16 Total Creatine Kinase 755 units/L (55-170) H 02/14/20 06:51 Total Protein 8.8 g/dL (6.3-8.2) H 02/11/20 13:16 Albumin 4.1 g/dL (3.9-5) 02/11/20 13:16 Albumin/Globulin Ratio 0.9 % 02/11/20 13:16 TSH 1.990 mlU/mL (0.270-4.200) 02/11/20 13:16 Urine Color Shaniqua (Yellow) 02/11/20 16:00 Urine Turbidity Slightly-cloudy (Clear) 02/11/20 16:00 Urine pH 5.0 (5.0-7.0) 02/11/20 16:00 Ur Specific Bryan 1.025 (1.003-1.030) 02/11/20 16:00 Urine Protein 100 mg/dl mg/dL (Negative) 02/11/20 16:00 Urine Glucose (UA) Neg mg/dL (Negative) 02/11/20 16:00 Urine Ketones 20 mg/dL (Negative) 02/11/20 16:00 Urine Blood Lg (Negative) 02/11/20 16:00 Urine Nitrite Neg (Negative) 02/11/20 16:00 Urine Bilirubin Neg (Negative) 02/11/20 16:00 Urine Urobilinogen 4.0 mg/dL (<2.0) 02/11/20 16:00 Ur Leukocyte Esterase Neg (Negative) 02/11/20 16:00 Urine WBC (Auto) 2.0 /HPF (0.0-6.0) 02/11/20 16:00 Urine RBC (Auto) 3.0 /HPF (0.0-6.0) 02/11/20 16:00 U Epithel Cells (Auto) 1.0 /HPF (0-13.0) 02/11/20 16:00 Urine Mucus Few /HPF 02/11/20 16:00 Salicylates < 0.3 mg/dL (2.8-20.0) L 02/11/20 13:16 Urine Opiates Screen Presumptive negative 02/11/20 23:22 Urine Methadone Screen Presumptive negative 02/11/20 23:22 Acetaminophen 5.0 ug/mL (10.0-30.0) L 02/11/20 13:16 Ur Barbiturates Screen Presumptive negative 02/11/20 23:22 Ur Phencyclidine Scrn Presumptive negative 02/11/20 23:22 Ur Amphetamines Screen Presumptive negative 02/11/20 23:22 U Benzodiazepines Scrn Presumptive negative 02/11/20 23:22 Urine Cocaine Screen Presumptive negative 02/11/20 23:22 U Marijuana (THC) Screen Presumptive negative 02/11/20 23:22 Drugs of Abuse Note Disclamer 02/11/20 23:22 Plasma/Serum Alcohol < 0.01 % (0-0.07) 02/11/20 13:16 Gautam/IV: Voiding Method Incontinent IV Catheter Type [Right Wrist] Peripheral IV IV Catheter Type [Right Peripheral IV Antecubital] Active Medications - Current Medications Current Medications: Generic Name Dose Route Start Last Admin Trade Name Freq PRN Reason Stop Dose Admin Acetaminophen 650 mg 02/11/20 22:12 02/13/20 17:37 Tylenol PO 650 mg Q4H PRN Administration Pain MILD(1-3)/Fever >100.5/GARCIA Heparin Sodium (Porcine) 5,000 unit 02/12/20 06:00 02/14/20 15:51 Heparin SUB-Q Not Given Q8HR YOLI Sodium Chloride 1,000 mls @ 150 mls/hr 02/11/20 22:15 02/14/20 15:52 Nacl 0.9% 1000 Ml IV 150 mls/hr DIRECT YOLI Administration Magnesium Hydroxide 30 ml 02/11/20 22:12 Milk Of Magnesia PO Q4H PRN Constipation Ondansetron HCl 4 mg 02/11/20 22:12 Zofran IV Q8H PRN Nausea And Vomiting Risperidone 0.25 mg 02/12/20 12:00 02/14/20 09:27 Risperdal PO 0.25 mg BID YOLI Administration Sertraline HCl 25 mg 02/12/20 12:00 02/14/20 09:28 Zoloft PO 25 mg QDAY YOLI Administration Sodium Chloride 10 ml 02/12/20 10:00 02/14/20 09:28 Sodium Chloride Flush Syringe 10 Ml IV 10 ml BID YOLI Administration Sodium Chloride 10 ml 02/11/20 22:12 Sodium Chloride Flush Syringe 10 Ml IV PRN PRN LINE FLUSH Trazodone HCl 50 mg 02/12/20 22:00 02/13/20 21:36 Desyrel PO 50 mg QHS YOLI Administration Nutrition/Malnutrition Assess - Dietary Evaluation Nutrition/Malnutrition Findings: Nutrition Notes Start: 02/12/20 08:32 Freq: Status: Active Protocol: Document 02/14/20 13:14 (Rec: 02/14/20 13:20 [id number]) Co-Sign 02/14/20 13:14 LP Nutrition Notes Initial or Follow up Reassessment Other Pertinent Diagnosis HIV, depression, dehydration, weakness Current Diet Regular Labs/Tests K 3.5 BUN 8 Cr 0.6 Pertinent Medications K-Dur Height 6 ft Weight 61 kg [place] Body Weight (kg) 80.90 BMI 18.2 Weight change and time frame Wt change noted Subjective/Other Information FU for intakes. Pt is very agitated. Pt reports not liking the food or ONS and not being able to taste very well . Pt given Ensure Clear Mixed Dunn and likes however refused to consume it, breakfast and lunch. Pt requested chopped meats. Unable to obtain weight or diet hx. 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 No Is Patient Ambulatory and/or Out of Bed No REE-([place]-confined to bed) 1854.996 Kcal/Kg value to use for calculation 39 Approximate Energy Requirements Using 2379 kcal/Kg Calculation Used for Recommendations Kcal/kg Additional Notes Protein: 68-86g (1.2-1.5g/kg) Fluid: 1ml/kcal Nutrition Intervention Change Diet Order: Continue regular Add Supplement/Snack (indicate name/kcal Change to Ensure Mixed Dunn /protein ) TID. Provides kCal: 720 Provides Protein (gm) 27 Goal #1 Meet at least 80% of protein and energy needs via PO and ONS intakes Goal #2 Wt gain/maintenance Anticipated Discharge Needs: Regular with ONS Follow-Up By: 02/16/20 Additional Comments F/U for PO/ONS intakes and tolerance
[2020-02-14] MEDS: traZODone 50 MG TAB PO SCH (21:09)
[2020-02-15] MEDS: SODIUM CHLORIDE 0.9% 1000 ML 1,000 ML IV SCH ×2 (06:20→22:20)
[2020-02-15] MEDS: HEPARIN 5,000 UNIT/1 ML VIAL SUB-Q SCH ×3 (06:20→22:20)
[2020-02-15] MEDS: risperiDONE 0.25 MG TAB PO SCH ×2 (09:25→22:20)
[2020-02-15] MEDS: LORazepam 1 MG TAB PO PRN ×2 (09:25→14:18)
[2020-02-15] MEDS: SERTRALINE 25 MG TAB PO SCH (09:25)
--- NOTE | 2020-02-15 13:19 | Consultation ---
History of Present Illness - Reason for Consult Consult date: 02/15/20 Reason for consult: depression - Chief Complaint Chief complaint: Mike Samuel is a patient who is known to me from a recent consult. At that time the patient was admitted for acute medical conditions from a local psychiatric facility for depression. During my interview with the patient, the patient is a/o x 2. He says he's doing "good." The patient denies SI/HI, but c/o hearing puppies. 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 He says this has been going on for about a month. He says the patient stopped taking his HIV medication for years. I advised the brother that since this is an underlying cause the patient would not likely benefit from psychiatric services. He says he was told at the last facility and a doctor at this facility that he was manic. He says he prefers inpatient because the patient has never been on any psych meds and he's hoping this will help stabilize him. He states "I'm not trying to dump my brother anywhere, but I feel like he would benefit from psych." PAST PSYCHIATRIC HISTORY: Diagnoses: Denies Suicide attempts or Self-harm behavior: Denies Prior psychiatric hospitalizations: Once Substance Abuse history: Denies Previous psychiatric medications tried: Denies Outpatient treatment: Denies PAST MEDICAL HISTORY: Family Psychiatric History: None reported or documented SOCIAL HISTORY Marital Status: Single Living Arrangements: with boyfriend and brother Employment Status: Unemployed Access to guns/weapons: Denies Education: 12th History of Abuse: none reported Legal History: Denies REVIEW OF SYSTEMS Constitutional: Negative for weight loss ENT: Negative for stridor Respiratory: Negative for cough or hemoptysis All other systems reviewed and are negative MENTAL STATUS EXAMINATION General Appearance: Dressed appropriately Behavior: Calm and cooperative Mood: "good" Affect and affective range: Congruent with stated mood Thought Process: disorganized, tangential Speech: tangential Suicidal Ideation: Denies Homicidal Ideation: Denies Hallucinations: Denies Delusions: None elicited Insight and Judgment: Limited Memory/Cognition: impaired Attention: Normal Orientation: Alert, oriented x 2 Assessment Major Depressive Disorder Altered Mental Status Assessment Major Depressive Disorder Altered Mental Status PLAN Continue previously prescribed medications. Sitter: Defer to primary Medical: Per primary Disposition: Will recommend acute inpatient psychiatric treatment at this time to alleviate family concerns. It is my clinical opinion that the patient's mentation is due to underlying acute and complex medical conditions and would not likely benefit; Rhabdo/CK 3363; now trending down, Metabolic encephalopathy, severe dehydration, HIV with unknown CD4 count, and severe malnutrition with BMI 16.9. Will Continue to follow. Thank you for this consult Medications and Allergies Allergies Allergy/AdvReac Type Severity Reaction Status Date / Time No Known Allergies Allergy Unverified 02/11/20 16:08 Home Medications Medication Instructions Recorded Confirmed Last Taken Type No Known Home Medications [No 02/13/20 02/13/20 Unknown History Reported Home Medications] Active Meds: Active Medications Acetaminophen (Tylenol) 650 mg PO Q4H PRN PRN Reason: Pain MILD(1-3)/Fever >100.5/GARCIA Last Admin: 02/13/20 17:37 Dose: 650 mg Documented by: Heparin Sodium (Porcine) (Heparin) 5,000 unit SUB-Q Q8HR YOLI Last Admin: 02/15/20 06:20 Dose: 5,000 unit Documented by: Sodium Chloride (Nacl 0.9% 1000 Ml) 1,000 mls @ 150 mls/hr IV DIRECT [facility] Last Admin: 02/15/20 06:20 Dose: 150 mls/hr Documented by: Lorazepam (Ativan) 1 mg PO Q3HR PRN PRN Reason: Agitation Last Admin: 02/15/20 09:25 Dose: 1 mg Documented by: Magnesium Hydroxide (Milk Of Magnesia) 30 ml PO Q4H PRN PRN Reason: Constipation Ondansetron HCl (Zofran) 4 mg IV Q8H PRN PRN Reason: Nausea And Vomiting Risperidone (Risperdal) 0.25 mg PO BID [facility] Last Admin: 02/15/20 09:25 Dose: 0.25 mg Documented by: Sertraline HCl (Zoloft) 25 mg PO QDAY [facility] Last Admin: 02/15/20 09:25 Dose: 25 mg Documented by: Sodium Chloride (Sodium Chloride Flush Syringe 10 Ml) 10 ml IV BID [facility] Last Admin: 02/15/20 09:25 Dose: Not Given Documented by: Sodium Chloride (Sodium Chloride Flush Syringe 10 Ml) 10 ml IV PRN PRN PRN Reason: LINE FLUSH Trazodone HCl (Desyrel) 50 mg PO QHS [facility] Last Admin: 02/14/20 21:09 Dose: 50 mg Documented by: Mental Status Exam - Vital signs Last Vital Signs Temp 97.8 F 02/15/20 11:16 Pulse 78 02/15/20 11:20 Resp 18 02/15/20 11:16 BP 138/93 02/15/20 11:16 Pulse Ox 63 L 02/15/20 04:50 Results Result Diagrams: 02/12/20 09:58 02/14/20 06:51 Abnormal lab results 02/15/20 Range/Units 09:51 Total Creatine Kinase 455 H (55-170) units/L All other labs normal.
--- NOTE | 2020-02-15 15:04 | Event Note ---
Date: 02/15/20 F/U HIV genotype, once results available, potentially can start on p.o. Biktarvy which will need to be continued at the psych facility. Biktarvy least likely to have drug interactions with psych meds
--- NOTE | 2020-02-15 19:27 | Progress Note ---
Assessment and Plan Assessment and plan: --Rhabdomyolysis /elevated CK -[id number] Current Visit: Yes Status: Acute Plan to address problem: Continue rigorous IV hydration, input output monitoring, follow renal function Monitor CK levels, plenty of oral fluids --Metabolic encephalopathy; Current Visit: Yes Status: Acute Plan to address problem: Patient is still confused every now and then, Psych following, talkative repeats his words Refusing treatment --Severe depression[sent from [facility]] Current Visit: Yes Status: Acute Plan to address problem: Management per psych, recommend inpatient psych placement Patient is 1013 status[came from [place]] --Severe dehydration Current Visit: Yes Status: Acute Plan to address problem: Continue IV hydration Encourage plenty oral fluids --HIV/on antiretrovirals, unknown CD4/viral counts Current Visit: Yes Status: Acute Plan to address problem: ID following ,unknown CD4 count and viral load Patient is mentally not stable, with confusion off and on Refusing treatment, may not be a candidate for aggressive management HIV At this point, ID following --Severe malnutrition; BMI 16.9 Current Visit: Yes Status: Acute Plan to address problem: nutrition supplements, supportive care, nutrition consult --DVT prophylaxis Current Visit: Yes Status: Acute Plan to address problem: Patient placed on subcutaneous heparin. 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 Hospitalist Physical - Constitutional Vitals: Temp Pulse Resp BP Pulse Ox 98.9 F 88 16 121/84 100 02/15/20 17:46 02/15/20 17:46 02/15/20 17:46 02/15/20 17:46 02/15/20 17:46 General appearance: Present: no acute distress, well-nourished, other (Talks e xcessively, repeats the same sentences, refusing treatment) - EENT Eyes: Present: PERRL, EOM intact - Neck Neck: Present: supple, normal ROM - Respiratory Respiratory effort: normal Respiratory: bilateral: diminished, rhonchi, negative: rales, wheezing - Cardiovascular Rhythm: regular Heart Sounds: Present: S1 & S2 - Extremities Extremities: no ischemia, No edema - Abdominal General gastrointestinal: soft, non-tender, non-distended, normal bowel sounds - Integumentary Integumentary: Present: clear, warm - Psychiatric Psychiatric: appropriate mood/affect, agitated, other (Confused) - Neurologic Neurologic: moves all extremities Results - Labs CBC & Chem 7: 02/12/20 09:58 02/14/20 06:51 Labs: Laboratory Last Values WBC 3.9 K/mm3 (4.5-11.0) L 02/12/20 09:58 RBC 3.48 M/mm3 (3.65-5.03) L 02/12/20 09:58 Hgb 11.0 gm/dl (11.8-15.2) L 02/12/20 09:58 Hct 31.3 % (35.5-45.6) L 02/12/20 09:58 MCV 90 fl (84-94) 02/12/20 09:58 MCH 32 pg (28-32) 02/12/20 09:58 MCHC 35 % (32-34) H 02/12/20 09:58 RDW 15.6 % (13.2-15.2) H 02/12/20 09:58 Plt Count 218 K/mm3 (140-440) 02/12/20 09:58 Lymph % (Auto) 11.0 % (13.4-35.0) L 02/11/20 13:16 Wells % (Auto) 11.4 % (0.0-7.3) H 02/11/20 13:16 Eos % (Auto) 0.2 % (0.0-4.3) 02/11/20 13:16 Baso % (Auto) 0.2 % (0.0-1.8) 02/11/20 13:16 Lymph # (Auto) 0.6 K/mm3 (1.2-5.4) L 02/11/20 13:16 Wells # (Auto) 0.6 K/mm3 (0.0-0.8) 02/11/20 13:16 Eos # (Auto) 0.0 K/mm3 (0.0-0.4) 02/11/20 13:16 Baso # (Auto) 0.0 K/mm3 (0.0-0.1) 02/11/20 13:16 Add Manual Diff Complete 02/12/20 09:58 Total Counted 100 02/12/20 09:58 Seg Neutrophils % 77.2 % (40.0-70.0) H 02/11/20 13:16 Seg Neuts % (Manual) 65.0 % (40.0-70.0) 02/12/20 09:58 Band Neutrophils % 3.0 % 02/12/20 09:58 Lymphocytes % (Manual) 19.0 % (13.4-35.0) 02/12/20 09:58 Reactive Lymphs % (Man) 0 % 02/12/20 09:58 Monocytes % (Manual) 12.0 % (0.0-7.3) H 02/12/20 09:58 Eosinophils % (Manual) 1.0 % (0.0-4.3) 02/12/20 09:58 Basophils % (Manual) 0 % (0.0-1.8) 02/12/20 09:58 Metamyelocytes % 0 % 02/12/20 09:58 Myelocytes % 0 % 02/12/20 09:58 Promyelocytes % 0 % 02/12/20 09:58 Blast Cells % 0 % 02/12/20 09:58 Nucleated RBC % Not Reportable 02/12/20 09:58 Seg Neutrophils # 4.3 K/mm3 (1.8-7.7) 02/11/20 13:16 Seg Neutrophils # Man 2.5 K/mm3 (1.8-7.7) 02/12/20 09:58 Band Neutrophils # 0.1 K/mm3 02/12/20 09:58 Lymphocytes # (Manual) 0.7 K/mm3 (1.2-5.4) L 02/12/20 09:58 Abs React Lymphs (Man) 0.0 K/mm3 02/12/20 09:58 Monocytes # (Manual) 0.5 K/mm3 (0.0-0.8) 02/12/20 09:58 Eosinophils # (Manual) 0.0 K/mm3 (0.0-0.4) 02/12/20 09:58 Basophils # (Manual) 0.0 K/mm3 (0.0-0.1) 02/12/20 09:58 Metamyelocytes # 0.0 K/mm3 02/12/20 09:58 Myelocytes # 0.0 K/mm3 02/12/20 09:58 Promyelocytes # 0.0 K/mm3 02/12/20 09:58 Blast Cells # 0.0 K/mm3 02/12/20 09:58 WBC Morphology Not Reportable 02/12/20 09:58 Hypersegmented Neuts Not Reportable 02/12/20 09:58 Hyposegmented Neuts Not Reportable 02/12/20 09:58 Hypogranular Neuts Not Reportable 02/12/20 09:58 Smudge Cells Not Reportable 02/12/20 09:58 Toxic Granulation Not Reportable 02/12/20 09:58 Toxic Vacuolation Not Reportable 02/12/20 09:58 Dohle Bodies Not Reportable 02/12/20 09:58 Pelger-Huet Anomaly Not Reportable 02/12/20 09:58 Thor Rods Not Reportable 02/12/20 09:58 Platelet Estimate Consistent w auto 02/12/20 09:58 Clumped Platelets Not Reportable 02/12/20 09:58 Plt Clumps, EDTA Not Reportable 02/12/20 09:58 Large Platelets Not Reportable 02/12/20 09:58 Giant Platelets Not Reportable 02/12/20 09:58 Platelet Satelliting Not Reportable 02/12/20 09:58 Plt Morphology Comment Not Reportable 02/12/20 09:58 RBC Morphology Not Reportable 02/12/20 09:58 Dimorphic RBCs Not Reportable 02/12/20 09:58 Polychromasia Not Reportable 02/12/20 09:58 Hypochromasia Not Reportable 02/12/20 09:58 Poikilocytosis Not Reportable 02/12/20 09:58 Anisocytosis Few 02/12/20 09:58 Microcytosis Few 02/12/20 09:58 Macrocytosis Few 02/12/20 09:58 Spherocytes Not Reportable 02/12/20 09:58 Pappenheimer Bodies Not Reportable 02/12/20 09:58 Sickle Cells Not Reportable 02/12/20 09:58 Target Cells Not Reportable 02/12/20 09:58 Tear Drop Cells Not Reportable 02/12/20 09:58 Ovalocytes Not Reportable 02/12/20 09:58 Helmet Cells Not Reportable 02/12/20 09:58 Re[place] [facility] Bodies Not Reportable 02/12/20 09:58 Addison Rings Not Reportable 02/12/20 09:58 Marko Cells Not Reportable 02/12/20 09:58 Bite Cells Not Reportable 02/12/20 09:58 Crenated Cell Not Reportable 02/12/20 09:58 Elliptocytes Not Reportable 02/12/20 09:58 Acanthocytes (Spur) Not Reportable 02/12/20 09:58 Rouleaux Not Reportable 02/12/20 09:58 Hemoglobin C Crystals Not Reportable 02/12/20 09:58 Schistocytes Not Reportable 02/12/20 09:58 Malaria parasites Not Reportable 02/12/20 09:58 Prabhjot Bodies Not Reportable 02/12/20 09:58 Hem Pathologist Commnt No 02/12/20 09:58 PT 14.6 Sec. (12.2-14.9) 02/12/20 09:58 INR 1.13 (0.87-1.13) 02/12/20 09:58 Sodium 139 mmol/L (137-145) 02/14/20 06:51 Potassium 3.5 mmol/L (3.6-5.0) L 02/14/20 06:51 Chloride 103.5 mmol/L (98-107) 02/14/20 06:51 Carbon Dioxide 23 mmol/L (22-30) 02/14/20 06:51 Anion Gap 16 mmol/L 02/14/20 06:51 BUN 8 mg/dL (9-20) L 02/14/20 06:51 Creatinine 0.6 mg/dL (0.8-1.3) L 02/14/20 06:51 Estimated GFR > 60 ml/min 02/14/20 06:51 BUN/Creatinine Ratio 13 % 02/14/20 06:51 Glucose 89 mg/dL (75-100) 02/14/20 06:51 Calcium 9.4 mg/dL (8.4-10.2) 02/14/20 06:51 Phosphorus 3.60 mg/dL (2.5-4.5) 02/13/20 10:38 Magnesium 1.90 mg/dL (1.7-2.3) 02/13/20 10:38 Total Bilirubin 0.60 mg/dL (0.1-1.2) 02/11/20 13:16 AST 66 units/L (5-40) H 02/11/20 13:16 ALT 31 units/L (7-56) 02/11/20 13:16 Alkaline Phosphatase 142 units/L (35-129) H 02/11/20 13:16 Ammonia TNR 02/11/20 13:16 Total Creatine Kinase 455 units/L (55-170) H 02/15/20 09:51 Total Protein 8.8 g/dL (6.3-8.2) H 02/11/20 13:16 Albumin 4.1 g/dL (3.9-5) 02/11/20 13:16 Albumin/Globulin Ratio 0.9 % 02/11/20 13:16 TSH 1.990 mlU/mL (0.270-4.200) 02/11/20 13:16 Urine Color Shaniqua (Yellow) 02/11/20 16:00 Urine Turbidity Slightly-cloudy (Clear) 02/11/20 16:00 Urine pH 5.0 (5.0-7.0) 02/11/20 16:00 Ur Specific [place] 1.025 (1.003-1.030) 02/11/20 16:00 Urine Protein 100 mg/dl mg/dL (Negative) 02/11/20 16:00 Urine Glucose (UA) Neg mg/dL (Negative) 02/11/20 16:00 Urine Ketones 20 mg/dL (Negative) 02/11/20 16:00 Urine Blood Lg (Negative) 02/11/20 16:00 Urine Nitrite Neg (Negative) 02/11/20 16:00 Urine Bilirubin Neg (Negative) 02/11/20 16:00 Urine Urobilinogen 4.0 mg/dL (<2.0) 02/11/20 16:00 Ur Leukocyte Esterase Neg (Negative) 02/11/20 16:00 Urine WBC (Auto) 2.0 /HPF (0.0-6.0) 02/11/20 16:00 Urine RBC (Auto) 3.0 /HPF (0.0-6.0) 02/11/20 16:00 U Epithel Cells (Auto) 1.0 /HPF (0-13.0) 02/11/20 16:00 Urine Mucus Few /HPF 02/11/20 16:00 Salicylates < 0.3 mg/dL (2.8-20.0) L 02/11/20 13:16 Urine Opiates Screen Presumptive negative 02/11/20 23:22 Urine Methadone Screen Presumptive negative 02/11/20 23:22 Acetaminophen 5.0 ug/mL (10.0-30.0) L 02/11/20 13:16 Ur Barbiturates Screen Presumptive negative 02/11/20 23:22 Ur Phencyclidine Scrn Presumptive negative 02/11/20 23:22 Ur Amphetamines Screen Presumptive negative 02/11/20 23:22 U Benzodiazepines Scrn Presumptive negative 02/11/20 23:22 Urine Cocaine Screen Presumptive negative 02/11/20 23:22 U Marijuana (THC) Screen Presumptive negative 02/11/20 23:22 Drugs of Abuse Note Disclamer 02/11/20 23:22 Plasma/Serum Alcohol < 0.01 % (0-0.07) 02/11/20 13:16 Gautam/IV: Voiding Method Diaper IV Catheter Type [Right Wrist] Peripheral IV IV Catheter Type [Right Peripheral IV Antecubital] Active Medications - Current Medications Current Medications: Generic Name Dose Route Start Last Admin Trade Name Freq PRN Reason Stop Dose Admin Acetaminophen 650 mg 02/11/20 22:12 02/13/20 17:37 Tylenol PO 650 mg Q4H PRN Administration Pain MILD(1-3)/Fever >100.5/GARCIA Heparin Sodium (Porcine) 5,000 unit 02/12/20 06:00 02/15/20 13:43 Heparin SUB-Q Not Given Q8HR YOLI Sodium Chloride 1,000 mls @ 150 mls/hr 02/11/20 22:15 02/15/20 06:20 Nacl 0.9% 1000 Ml IV 150 mls/hr DIRECT YOLI Administration Lorazepam 1 mg 02/14/20 20:17 02/15/20 14:18 Ativan PO 1 mg Q3HR PRN Administration Agitation Magnesium Hydroxide 30 ml 02/11/20 22:12 Milk Of Magnesia PO Q4H PRN Constipation Ondansetron HCl 4 mg 02/11/20 22:12 Zofran IV Q8H PRN Nausea And Vomiting Risperidone 0.25 mg 02/12/20 12:00 02/15/20 09:25 Risperdal PO 0.25 mg BID YOLI Administration Sertraline HCl 25 mg 02/12/20 12:00 02/15/20 09:25 Zoloft PO 25 mg QDAY YOLI Administration Sodium Chloride 10 ml 02/12/20 10:00 02/15/20 09:25 Sodium Chloride Flush Syringe 10 Ml IV Not Given BID YOLI Sodium Chloride 10 ml 02/11/20 22:12 Sodium Chloride Flush Syringe 10 Ml IV PRN PRN LINE FLUSH Trazodone HCl 50 mg 02/12/20 22:00 02/14/20 21:09 Desyrel PO 50 mg QHS YOLI Administration Nutrition/Malnutrition Assess - Dietary Evaluation Nutrition/Malnutrition Findings: Nutrition Notes Start: 02/12/20 08:32 Freq: Status: Active Protocol: Document 02/14/20 13:14 (Rec: 02/14/20 13:20 KANDACE [id number]) Co-Sign 02/14/20 13:14 LP Nutrition Notes Initial or Follow up Reassessment Other Pertinent Diagnosis HIV, depression, dehydration, weakness Current Diet Regular Labs/Tests K 3.5 BUN 8 Cr 0.6 Pertinent Medications K-Dur Height 6 ft Weight 61 kg [place] Body Weight (kg) 80.90 BMI 18.2 Weight change and time frame Wt change noted Subjective/Other Information FU for intakes. Pt is very agitated. Pt reports not liking the food or ONS and not being able to taste very well . Pt given Ensure Clear Mixed Dunn and likes however refused to consume it, breakfast and lunch. Pt requested chopped meats. Unable to obtain weight or diet hx. Percent of energy/protein needs met: 0%/0% Burn Absent Trauma Absent Minimum of two criteria Yes Energy Intake (non-severe) <75% Estimated Energy Requirement >7 days Reduced On Site Services Specialist Strength Measurably Reduced (severe) #1 Nutrition Diagnosis Malnutrition Diagnosis Progress(for reassessment Continues documentation) Is patient on ventilator? No Is Patient Ambulatory and/or Out of Bed No REE-([place]-confined to bed) 1854.996 Kcal/Kg value to use for calculation 39 Approximate Energy Requirements Using 2379 kcal/Kg Calculation Used for Recommendations Kcal/kg Additional Notes Protein: 68-86g (1.2-1.5g/kg) Fluid: 1ml/kcal Nutrition Intervention Change Diet Order: Continue regular Add Supplement/Snack (indicate name/kcal Change to Ensure Mixed Dunn /protein ) TID. Provides kCal: 720 Provides Protein (gm) 27 Goal #1 Meet at least 80% of protein and energy needs via PO and ONS intakes Goal #2 Wt gain/maintenance Anticipated Discharge Needs: Regular with ONS Follow-Up By: 02/16/20 Additional Comments F/U for PO/ONS intakes and tolerance
[2020-02-15] MEDS: traZODone 50 MG TAB PO SCH (22:20)
[2020-02-16] MEDS: LORazepam 1 MG TAB PO PRN ×3 (04:31→18:32)
[2020-02-16] MEDS: HEPARIN 5,000 UNIT/1 ML VIAL SUB-Q SCH ×3 (06:26→22:19)
[2020-02-16] MEDS: SODIUM CHLORIDE 0.9% 1000 ML 1,000 ML IV SCH ×2 (06:26→13:52)
[2020-02-16] MEDS: risperiDONE 0.25 MG TAB PO SCH ×2 (09:12→22:21)
[2020-02-16] MEDS: SERTRALINE 25 MG TAB PO SCH (09:12)
--- NOTE | 2020-02-16 11:56 | Progress Note ---
Subjective - Reason for Consult Consult date: 02/16/20 Reason for consult: hallucinations - Chief Complaint Chief complaint: The patient's medical record was reviewed and the patient's progress discussed with the nursing staff. The sitter states the patient "has been talking out of his head and appear to see people who are not there." During my interview with the patient today, he is lying in bed. He is a/o x 2. He is sort of rambling. The patient says he feels "terrible." He then says "because I don't have any body to talk to." The patient denies SI/HI. When asked about hallucinations, he says "well not really, but sometimes." When asking the patient what were the hallucinations, he replied "I'm not sure." The patient then asks if he could talk to me. He says "now what what we talking about?" REVIEW OF SYSTEMS Constitutional: Negative for weight loss ENT: Negative for stridor Respiratory: Negative for cough or hemoptysis All other systems reviewed and are negative MENTAL STATUS EXAMINATION General Appearance: Dressed appropriately Behavior: Calm and cooperative Mood: "terrible" Affect and affective range: Congruent with stated mood Thought Process: disorganized, tangential Speech: tangential, rambling Suicidal Ideation: Denies Homicidal Ideation: Denies Hallucinations: Denies Delusions: None elicited Insight and Judgment: Limited Memory/Cognition: impaired Attention: Normal Orientation: Alert, oriented x 2 Assessment Major Depressive Disorder Altered Mental Status Assessment Major Depressive Disorder Altered Mental Status PLAN Increase Risperidone 0.5mg po BID Increase Depakote DR 125mg po BID Sitter: Defer to primary Medical: Per primary Disposition: recommend acute inpatient psychiatric treatment once medically clear. Will Continue to follow. Thank you for this consult Mental Status Exam - Vital signs Last Vital Signs Temp 98.5 F 02/16/20 11:25 Pulse 89 02/16/20 11:25 Resp 17 02/16/20 11:25 BP 142/84 02/16/20 11:25 Pulse Ox 100 02/16/20 11:25
[2020-02-16] MEDS: DIVALPROEX DR 125 MG TAB PO SCH ×2 (15:13→22:22)
--- NOTE | 2020-02-16 17:32 | Progress Note ---
Assessment and Plan Assessment and plan: -Rhabdomyolysis /elevated CK -[phone] Current Visit: Yes Status: Acute Plan to address problem: Patient CK levels are near normal range --Metabolic encephalopathy; Current Visit: Yes Status: Acute Plan to address problem: Patient is still confused every now and then, Psych following, talkative repeats his words Refusing treatment --Severe depression[sent from [facility]] Current Visit: Yes Status: Acute Plan to address problem: Management per psych, recommend inpatient psych placement Patient is 1013 status[came from [place]] --Severe dehydration Current Visit: Yes Status: Acute Plan to address problem: Resolved --HIV/on antiretrovirals, unknown CD4/viral counts Current Visit: Yes Status: Acute Plan to address problem: unknown CD4 count and viral load Patient is mentally not stable, with confusion off and on Refusing treatment, confused and depressed may not be a candidate for aggressive management HIV Management per ID --Severe malnutrition; BMI 16.9 Current Visit: Yes Status: Acute Plan to address problem: nutrition supplements, supportive care, nutrition consult Poor oral intake secondary to depression, refusing --DVT prophylaxis Current Visit: Yes Status: Acute Plan to address problem: Patient placed on subcutaneous heparin. -- Full code status Current Visit: Yes Status: Acute Monitor and adjust the management as needed Patient is medically stable May discharge to inpatient psych facility History Interval history: Patient is sleeping easily awakens Confused, clinically no change CK level significantly improved Vital signs noted 1013 status CK levels 292 Hospitalist Physical - Constitutional Vitals: Temp Pulse Resp BP Pulse Ox 98.3 F 100 H 17 146/86 99 02/16/20 16:46 02/16/20 16:46 02/16/20 16:46 02/16/20 16:46 02/16/20 16:46 General appearance: Present: no acute distress, well-nourished, other (Talks excessively, repeats the same sentences, refusing treatment) - EENT Eyes: Present: PERRL, EOM intact - Neck Neck: Present: supple, normal ROM - Respiratory Respiratory effort: normal Respiratory: bilateral: diminished, negative: rales, rhonchi, wheezing - Cardiovascular Rhythm: regular Heart Sounds: Present: S1 & S2 - Extremities Extremities: no ischemia, No edema - Abdominal General gastrointestinal: soft, non-tender, non-distended, normal bowel sounds - Integumentary Integumentary: Present: clear, warm - Psychiatric Psychiatric: appropriate mood/affect, other (Confusion and hallucinations at ti me) - Neurologic Neurologic: moves all extremities Results - Labs CBC & Chem 7: 02/12/20 09:58 02/14/20 06:51 Labs: Laboratory Last Values WBC 3.9 K/mm3 (4.5-11.0) L 02/12/20 09:58 RBC 3.48 M/mm3 (3.65-5.03) L 02/12/20 09:58 Hgb 11.0 gm/dl (11.8-15.2) L 02/12/20 09:58 Hct 31.3 % (35.5-45.6) L 02/12/20 09:58 MCV 90 fl (84-94) 02/12/20 09:58 MCH 32 pg (28-32) 02/12/20 09:58 MCHC 35 % (32-34) H 02/12/20 09:58 RDW 15.6 % (13.2-15.2) H 02/12/20 09:58 Plt Count 218 K/mm3 (140-440) 02/12/20 09:58 Lymph % (Auto) 11.0 % (13.4-35.0) L 02/11/20 13:16 [place] % (Auto) 11.4 % (0.0-7.3) H 02/11/20 13:16 Eos % (Auto) 0.2 % (0.0-4.3) 02/11/20 13:16 Baso % (Auto) 0.2 % (0.0-1.8) 02/11/20 13:16 Lymph # (Auto) 0.6 K/mm3 (1.2-5.4) L 02/11/20 13:16 [place] # (Auto) 0.6 K/mm3 (0.0-0.8) 02/11/20 13:16 Eos # (Auto) 0.0 K/mm3 (0.0-0.4) 02/11/20 13:16 Baso # (Auto) 0.0 K/mm3 (0.0-0.1) 02/11/20 13:16 Add Manual Diff Complete 02/12/20 09:58 Total Counted 100 02/12/20 09:58 Seg Neutrophils % 77.2 % (40.0-70.0) H 02/11/20 13:16 Seg Neuts % (Manual) 65.0 % (40.0-70.0) 02/12/20 09:58 Band Neutrophils % 3.0 % 02/12/20 09:58 Lymphocytes % (Manual) 19.0 % (13.4-35.0) 02/12/20 09:58 Reactive Lymphs % (Man) 0 % 02/12/20 09:58 Monocytes % (Manual) 12.0 % (0.0-7.3) H 02/12/20 09:58 Eosinophils % (Manual) 1.0 % (0.0-4.3) 02/12/20 09:58 Basophils % (Manual) 0 % (0.0-1.8) 02/12/20 09:58 Metamyelocytes % 0 % 02/12/20 09:58 Myelocytes % 0 % 02/12/20 09:58 Promyelocytes % 0 % 02/12/20 09:58 Blast Cells % 0 % 02/12/20 09:58 Nucleated RBC % Not Reportable 02/12/20 09:58 Seg Neutrophils # 4.3 K/mm3 (1.8-7.7) 02/11/20 13:16 Seg Neutrophils # Man 2.5 K/mm3 (1.8-7.7) 02/12/20 09:58 Band Neutrophils # 0.1 K/mm3 02/12/20 09:58 Lymphocytes # (Manual) 0.7 K/mm3 (1.2-5.4) L 02/12/20 09:58 Abs React Lymphs (Man) 0.0 K/mm3 02/12/20 09:58 Monocytes # (Manual) 0.5 K/mm3 (0.0-0.8) 02/12/20 09:58 Eosinophils # (Manual) 0.0 K/mm3 (0.0-0.4) 02/12/20 09:58 Basophils # (Manual) 0.0 K/mm3 (0.0-0.1) 02/12/20 09:58 Metamyelocytes # 0.0 K/mm3 02/12/20 09:58 Myelocytes # 0.0 K/mm3 02/12/20 09:58 Promyelocytes # 0.0 K/mm3 02/12/20 09:58 Blast Cells # 0.0 K/mm3 02/12/20 09:58 WBC Morphology Not Reportable 02/12/20 09:58 Hypersegmented Neuts Not Reportable 02/12/20 09:58 Hyposegmented Neuts Not Reportable 02/12/20 09:58 Hypogranular Neuts Not Reportable 02/12/20 09:58 Smudge Cells Not Reportable 02/12/20 09:58 Toxic Granulation Not Reportable 02/12/20 09:58 Toxic Vacuolation Not Reportable 02/12/20 09:58 Dohle Bodies Not Reportable 02/12/20 09:58 Pelger-Huet Anomaly Not Reportable 02/12/20 09:58 Thor Rods Not Reportable 02/12/20 09:58 Platelet Estimate Consistent w auto 02/12/20 09:58 Clumped Platelets Not Reportable 02/12/20 09:58 Plt Clumps, EDTA Not Reportable 02/12/20 09:58 Large Platelets Not Reportable 02/12/20 09:58 Giant Platelets Not Reportable 02/12/20 09:58 Platelet Satelliting Not Reportable 02/12/20 09:58 Plt Morphology Comment Not Reportable 02/12/20 09:58 RBC Morphology Not Reportable 02/12/20 09:58 Dimorphic RBCs Not Reportable 02/12/20 09:58 Polychromasia Not Reportable 02/12/20 09:58 Hypochromasia Not Reportable 02/12/20 09:58 Poikilocytosis Not Reportable 02/12/20 09:58 Anisocytosis Few 02/12/20 09:58 Microcytosis Few 02/12/20 09:58 Macrocytosis Few 02/12/20 09:58 Spherocytes Not Reportable 02/12/20 09:58 Pappenheimer Bodies Not Reportable 02/12/20 09:58 Sickle Cells Not Reportable 02/12/20 09:58 Target Cells Not Reportable 02/12/20 09:58 Tear Drop Cells Not Reportable 02/12/20 09:58 Ovalocytes Not Reportable 02/12/20 09:58 Helmet Cells Not Reportable 02/12/20 09:58 Reinoso-Rutland Bodies Not Reportable 02/12/20 09:58 Donovan Rings Not Reportable 02/12/20 09:58 [place] Cells Not Reportable 02/12/20 09:58 Bite Cells Not Reportable 02/12/20 09:58 Crenated Cell Not Reportable 02/12/20 09:58 Elliptocytes Not Reportable 02/12/20 09:58 Acanthocytes (Spur) Not Reportable 02/12/20 09:58 Rouleaux Not Reportable 02/12/20 09:58 Hemoglobin C Crystals Not Reportable 02/12/20 09:58 Schistocytes Not Reportable 02/12/20 09:58 Malaria parasites Not Reportable 02/12/20 09:58 Prabhjot Bodies Not Reportable 02/12/20 09:58 Hem Pathologist Commnt No 02/12/20 09:58 PT 14.6 Sec. (12.2-14.9) 02/12/20 09:58 INR 1.13 (0.87-1.13) 02/12/20 09:58 Sodium 139 mmol/L (137-145) 02/14/20 06:51 Potassium 3.5 mmol/L (3.6-5.0) L 02/14/20 06:51 Chloride 103.5 mmol/L (98-107) 02/14/20 06:51 Carbon Dioxide 23 mmol/L (22-30) 02/14/20 06:51 Anion Gap 16 mmol/L 02/14/20 06:51 BUN 8 mg/dL (9-20) L 02/14/20 06:51 Creatinine 0.6 mg/dL (0.8-1.3) L 02/14/20 06:51 Estimated GFR > 60 ml/min 02/14/20 06:51 BUN/Creatinine Ratio 13 % 02/14/20 06:51 Glucose 89 mg/dL (75-100) 02/14/20 06:51 Calcium 9.4 mg/dL (8.4-10.2) 02/14/20 06:51 Phosphorus 3.60 mg/dL (2.5-4.5) 02/13/20 10:38 Magnesium 1.90 mg/dL (1.7-2.3) 02/13/20 10:38 Total Bilirubin 0.60 mg/dL (0.1-1.2) 02/11/20 13:16 AST 66 units/L (5-40) H 02/11/20 13:16 ALT 31 units/L (7-56) 02/11/20 13:16 Alkaline Phosphatase 142 units/L (35-129) H 02/11/20 13:16 Ammonia TNR 02/11/20 13:16 Total Creatine Kinase 292 units/L (55-170) H 02/16/20 10:29 Total Protein 8.8 g/dL (6.3-8.2) H 02/11/20 13:16 Albumin 4.1 g/dL (3.9-5) 02/11/20 13:16 Albumin/Globulin Ratio 0.9 % 02/11/20 13:16 TSH 1.990 mlU/mL (0.270-4.200) 02/11/20 13:16 Urine Color Shaniqua (Yellow) 02/11/20 16:00 Urine Turbidity Slightly-cloudy (Clear) 02/11/20 16:00 Urine pH 5.0 (5.0-7.0) 02/11/20 16:00 Ur Specific [place] 1.025 (1.003-1.030) 02/11/20 16:00 Urine Protein 100 mg/dl mg/dL (Negative) 02/11/20 16:00 Urine Glucose (UA) Neg mg/dL (Negative) 02/11/20 16:00 Urine Ketones 20 mg/dL (Negative) 02/11/20 16:00 Urine Blood Lg (Negative) 02/11/20 16:00 Urine Nitrite Neg (Negative) 02/11/20 16:00 Urine Bilirubin Neg (Negative) 02/11/20 16:00 Urine Urobilinogen 4.0 mg/dL (<2.0) 02/11/20 16:00 Ur Leukocyte Esterase Neg (Negative) 02/11/20 16:00 Urine WBC (Auto) 2.0 /HPF (0.0-6.0) 02/11/20 16:00 Urine RBC (Auto) 3.0 /HPF (0.0-6.0) 02/11/20 16:00 U Epithel Cells (Auto) 1.0 /HPF (0-13.0) 02/11/20 16:00 Urine Mucus Few /HPF 02/11/20 16:00 Salicylates < 0.3 mg/dL (2.8-20.0) L 02/11/20 13:16 Urine Opiates Screen Presumptive negative 02/11/20 23:22 Urine Methadone Screen Presumptive negative 02/11/20 23:22 Acetaminophen 5.0 ug/mL (10.0-30.0) L 02/11/20 13:16 Ur Barbiturates Screen Presumptive negative 02/11/20 23:22 Ur Phencyclidine Scrn Presumptive negative 02/11/20 23:22 Ur Amphetamines Screen Presumptive negative 02/11/20 23:22 U Benzodiazepines Scrn Presumptive negative 02/11/20 23:22 Urine Cocaine Screen Presumptive negative 02/11/20 23:22 U Marijuana (THC) Screen Presumptive negative 02/11/20 23:22 Drugs of Abuse Note Disclamer 02/11/20 23:22 Plasma/Serum Alcohol < 0.01 % (0-0.07) 02/11/20 13:16 Gautam/IV: Voiding Method Condom Catheter IV Catheter Type [Right Wrist] Peripheral IV IV Catheter Type [Right Peripheral IV Antecubital] Active Medications - Current Medications Current Medications: Generic Name Dose Route Start Last Admin Trade Name Freq PRN Reason Stop Dose Admin Acetaminophen 650 mg 02/11/20 22:12 02/13/20 17:37 Tylenol PO 650 mg Q4H PRN Administration Pain MILD(1-3)/Fever >100.5/GARCIA Divalproex Sodium 125 mg 02/16/20 12:00 02/16/20 15:[address] PO 125 mg BID YOLI Administration Heparin Sodium (Porcine) 5,000 unit 02/12/20 06:00 02/16/20 13:52 Heparin SUB-Q 5,000 unit Q8HR YOLI Administration Sodium Chloride 1,000 mls @ 150 mls/hr 02/11/20 22:15 02/16/20 13:52 Nacl 0.9% 1000 Ml IV 150 mls/hr DIRECT YOLI Administration Lorazepam 1 mg 02/14/20 20:17 02/16/20 09:12 Ativan PO 1 mg Q3HR PRN Administration Agitation Magnesium Hydroxide 30 ml 02/11/20 22:12 Milk Of Magnesia PO Q4H PRN Constipation Ondansetron HCl 4 mg 02/11/20 22:12 Zofran IV Q8H PRN Nausea And Vomiting Risperidone 0.5 mg 02/16/20 22:00 Risperdal PO BID YOLI Sertraline HCl 25 mg 02/12/20 12:00 02/16/20 09:12 Zoloft PO 25 mg QDAY OYLI Administration Sodium Chloride 10 ml 02/12/20 10:00 02/16/20 09:17 Sodium Chloride Flush Syringe 10 Ml IV 10 ml BID YOLI Administration Sodium Chloride 10 ml 02/11/20 22:12 Sodium Chloride Flush Syringe 10 Ml IV PRN PRN LINE FLUSH Trazodone HCl 50 mg 02/12/20 22:00 02/15/20 22:20 Desyrel PO 50 mg QHS YOLI Administration Nutrition/Malnutrition Assess - Dietary Evaluation Nutrition/Malnutrition Findings: Nutrition Notes Start: 02/12/20 08:32 Freq: Status: Active Protocol: Document 02/16/20 13:09 JENNY (Rec: 02/16/20 13:13 JENNY [id number]) Co-Sign 02/16/20 13:09 LM Nutrition Notes Initial or Follow up Reassessment Other Pertinent Diagnosis HIV, depression, dehydration, weakness Current Diet Regular Labs/Tests no new labs Pertinent Medications NS 150 ml/hr Height 6 ft Weight 61 kg [place] Body Weight (kg) 80.90 BMI 18.2 Weight Status Underweight Subjective/Other Information F/u intakes and ONS. Per RN, pt cannot answer phone due to suicide watch. Pt still refusing all meals and ONS. Percent of energy/protein needs met: 0%/0% Burn Absent Trauma Absent Minimum of two criteria Yes Energy Intake (non-severe) <75% Estimated Energy Requirement >7 days Reduced Vocal Performer Strength Measurably Reduced (severe) #1 Nutrition Diagnosis Malnutrition Diagnosis Progress(for reassessment Continues documentation) Is patient on ventilator? No Is Patient Ambulatory and/or Out of Bed No REE-([place]-confined to bed) 1854.996 Kcal/Kg value to use for calculation 39 Approximate Energy Requirements Using 2379 kcal/Kg Calculation Used for Recommendations Kcal/kg Additional Notes Protein: 68-86g (1.2-1.5g/kg) Fluid: 1ml/kcal Nutrition Intervention Change Diet Order: Continue regular Nutrition Support: Consult for TF if needed. Add Supplement/Snack (indicate name/kcal d/c ONS /protein ) Goal #1 Meet at least 80% of protein and energy needs via PO. Goal #2 Wt gain/maintenance Anticipated Discharge Needs: Regular with ONS PRN Follow-Up By: 02/25/20 Additional Comments F/u intakes
[2020-02-16] MEDS: traZODone 50 MG TAB PO SCH (22:22)
[2020-02-17] MEDS: LORazepam 1 MG TAB PO PRN ×3 (01:48→23:24)
[2020-02-17] MEDS: HEPARIN 5,000 UNIT/1 ML VIAL SUB-Q SCH ×3 (05:50→23:25)
[2020-02-17] MEDS: DIVALPROEX DR 125 MG TAB PO SCH ×2 (11:36→23:24)
[2020-02-17] MEDS: risperiDONE 0.25 MG TAB PO SCH (11:36)
[2020-02-17] MEDS: SERTRALINE 25 MG TAB PO SCH (11:37)
--- NOTE | 2020-02-17 12:36 | Progress Note ---
Subjective - Reason for Consult Consult date: 02/17/20 Reason for consult: depression, from anchor - Chief Complaint Chief complaint: The patient's medical record was reviewed and the patient's progress discussed with the nursing staff. The sitter states the patient has been talking to himself. During my interview with the patient today, he is lying in bed. He is a/o x 2. He is awake. He makes good eye contact. The patient states he feels "horrible." He says "everybody is treating me life a 6 year old kid." He verbalizes seeing "cats." When asking him to tell me more about the cats, he says, "I just see them. I don't know." He denies SI/HI. The patient says he sleeps "good." He says his appetite is "not good." He then says "the food is disgusting." REVIEW OF SYSTEMS Constitutional: Negative for weight loss ENT: Negative for stridor Respiratory: Negative for cough or hemoptysis All other systems reviewed and are negative MENTAL STATUS EXAMINATION General Appearance: Dressed appropriately Behavior: Calm and cooperative Mood: "terrible" Affect and affective range: Congruent with stated mood Thought Process: disorganized, tangential Speech: tangential, rambling Suicidal Ideation: Denies Homicidal Ideation: Denies Hallucinations: Denies Delusions: None elicited Insight and Judgment: Limited Memory/Cognition: impaired Attention: Normal Orientation: Alert, oriented x 2 Assessment Major Depressive Disorder Altered Mental Status Assessment Major Depressive Disorder Altered Mental Status PLAN Increase Risperidone 1mg po BID Sitter: Defer to primary Medical: Per primary Disposition: recommend acute inpatient psychiatric treatment once medically clear. Will Continue to follow. Thank you for this consult Mental Status Exam - Vital signs Last Vital Signs Temp 97.8 F 02/17/20 05:13 Pulse 83 02/17/20 05:00 Resp 18 02/17/20 05:13 BP 132/84 02/17/20 05:13 Pulse Ox 96 02/17/20 05:00
--- NOTE | 2020-02-17 12:45 | Event Note ---
Date: 02/17/20 F/U HIV genotype, HIV RNA PCR and CD4 count, once results available, potentially can start on p.o. Biktarvy which will need to be continued at the inpatient psych facility. Biktarvy least likely to have drug interactions with psych meds. He will also need assistance to help enroll in a [facility] for continuation of his HIV meds once he gets discharged.
--- NOTE | 2020-02-17 13:45 | Progress Note ---
Assessment and Plan Assessment and plan: --Severe depression[sent from [facility]] Current Visit: Yes Status: Acute Plan to address problem: Management per psych, Patient is calm and quiet today However refusing blood tests sometimes food Psych following ,inpatient psych placement Patient is 1013 status[came from [place]] Psych recommend inpatient psych placement When medically stable --Rhabdomyolysis /elevated CK -[phone] Current Visit: Yes Status: Acute Plan to address problem: Patient CK levels are near normal range Continue IV fluids encourage liquids --Severe dehydration Current Visit: Yes Status: Acute Plan to address problem: Resolved --HIV/on antiretrovirals, unknown CD4/viral counts Current Visit: Yes Status: Acute Plan to address problem: unknown CD4 count and viral load Patient is mentally not stable, noncompliant may not be a candidate for aggressive management HIV Management per ID, patient needs to follow-up with private ID/department upon discharge --Metabolic encephalopathy; Current Visit: Yes Status: Acute Plan to address problem: Patient is still confused every now and then, Psych following, talkative repeats his words Refusing treatment --Severe malnutrition; BMI 16.9 Current Visit: Yes Status: Acute Plan to address problem: nutrition supplements, supportive care, nutrition consult Poor oral intake secondary to depression, refusing --DVT prophylaxis Current Visit: Yes Status: Acute Plan to address problem: Patient placed on subcutaneous heparin. -- Full code status Current Visit: Yes Status: Acute Monitor and adjust the management as needed Patient is medically stable May discharge to inpatient psych facility History Interval history: I have seen and examined the patient at the bedside Patient 1013 status, alert and awake Confused, refusing treatment Vital signs noted bus mechanic in the room Hospitalist Physical - Constitutional Vitals: Temp Pulse Resp BP Pulse Ox 97.8 F 83 18 132/84 96 02/17/20 05:13 02/17/20 05:00 02/17/20 05:13 02/17/20 05:13 02/17/20 05:00 General appearance: Present: no acute distress, well-nourished, other (Calm and quiet today, refusing treatment) - EENT Eyes: Present: PERRL, EOM intact - Neck Neck: Present: supple, normal ROM - Respiratory Respiratory effort: normal Respiratory: negative: rales, rhonchi, wheezing - Cardiovascular Rhythm: regular Heart Sounds: Present: S1 & S2 - Extremities Extremities: no ischemia, No edema - Abdominal General gastrointestinal: soft, non-tender, non-distended, normal bowel sounds - Integumentary Integumentary: Present: clear, warm - Psychiatric Psychiatric: appropriate mood/affect, other (Confused at times) - Neurologic Neurologic: moves all extremities Results - Labs CBC & Chem 7: 02/12/20 09:58 02/14/20 06:51 Labs: Laboratory Last Values WBC 3.9 K/mm3 (4.5-11.0) L 02/12/20 09:58 RBC 3.48 M/mm3 (3.65-5.03) L 02/12/20 09:58 Hgb 11.0 gm/dl (11.8-15.2) L 02/12/20 09:58 Hct 31.3 % (35.5-45.6) L 02/12/20 09:58 MCV 90 fl (84-94) 02/12/20 09:58 MCH 32 pg (28-32) 02/12/20 09:58 MCHC 35 % (32-34) H 02/12/20 09:58 RDW 15.6 % (13.2-15.2) H 02/12/20 09:58 Plt Count 218 K/mm3 (140-440) 02/12/20 09:58 Lymph % (Auto) 11.0 % (13.4-35.0) L 02/11/20 13:16 [place] % (Auto) 11.4 % (0.0-7.3) H 02/11/20 13:16 Eos % (Auto) 0.2 % (0.0-4.3) 02/11/20 13:16 Baso % (Auto) 0.2 % (0.0-1.8) 02/11/20 13:16 Lymph # (Auto) 0.6 K/mm3 (1.2-5.4) L 02/11/20 13:16 [place] # (Auto) 0.6 K/mm3 (0.0-0.8) 02/11/20 13:16 Eos # (Auto) 0.0 K/mm3 (0.0-0.4) 02/11/20 13:16 Baso # (Auto) 0.0 K/mm3 (0.0-0.1) 02/11/20 13:16 Add Manual Diff Complete 02/12/20 09:58 Total Counted 100 02/12/20 09:58 Seg Neutrophils % 77.2 % (40.0-70.0) H 02/11/20 13:16 Seg Neuts % (Manual) 65.0 % (40.0-70.0) 02/12/20 09:58 Band Neutrophils % 3.0 % 02/12/20 09:58 Lymphocytes % (Manual) 19.0 % (13.4-35.0) 02/12/20 09:58 Reactive Lymphs % (Man) 0 % 02/12/20 09:58 Monocytes % (Manual) 12.0 % (0.0-7.3) H 02/12/20 09:58 Eosinophils % (Manual) 1.0 % (0.0-4.3) 02/12/20 09:58 Basophils % (Manual) 0 % (0.0-1.8) 02/12/20 09:58 Metamyelocytes % 0 % 02/12/20 09:58 Myelocytes % 0 % 02/12/20 09:58 Promyelocytes % 0 % 02/12/20 09:58 Blast Cells % 0 % 02/12/20 09:58 Nucleated RBC % Not Reportable 02/12/20 09:58 Seg Neutrophils # 4.3 K/mm3 (1.8-7.7) 02/11/20 13:16 Seg Neutrophils # Man 2.5 K/mm3 (1.8-7.7) 02/12/20 09:58 Band Neutrophils # 0.1 K/mm3 02/12/20 09:58 Lymphocytes # (Manual) 0.7 K/mm3 (1.2-5.4) L 02/12/20 09:58 Abs React Lymphs (Man) 0.0 K/mm3 02/12/20 09:58 Monocytes # (Manual) 0.5 K/mm3 (0.0-0.8) 02/12/20 09:58 Eosinophils # (Manual) 0.0 K/mm3 (0.0-0.4) 02/12/20 09:58 Basophils # (Manual) 0.0 K/mm3 (0.0-0.1) 02/12/20 09:58 Metamyelocytes # 0.0 K/mm3 02/12/20 09:58 Myelocytes # 0.0 K/mm3 02/12/20 09:58 Promyelocytes # 0.0 K/mm3 02/12/20 09:58 Blast Cells # 0.0 K/mm3 02/12/20 09:58 WBC Morphology Not Reportable 02/12/20 09:58 Hypersegmented Neuts Not Reportable 02/12/20 09:58 Hyposegmented Neuts Not Reportable 02/12/20 09:58 Hypogranular Neuts Not Reportable 02/12/20 09:58 Smudge Cells Not Reportable 02/12/20 09:58 Toxic Granulation Not Reportable 02/12/20 09:58 Toxic Vacuolation Not Reportable 02/12/20 09:58 Dohle Bodies Not Reportable 02/12/20 09:58 Pelger-Huet Anomaly Not Reportable 02/12/20 09:58 Thor Rods Not Reportable 02/12/20 09:58 Platelet Estimate Consistent w auto 02/12/20 09:58 Clumped Platelets Not Reportable 02/12/20 09:58 Plt Clumps, EDTA Not Reportable 02/12/20 09:58 Large Platelets Not Reportable 02/12/20 09:58 Giant Platelets Not Reportable 02/12/20 09:58 Platelet Satelliting Not Reportable 02/12/20 09:58 Plt Morphology Comment Not Reportable 02/12/20 09:58 RBC Morphology Not Reportable 02/12/20 09:58 Dimorphic RBCs Not Reportable 02/12/20 09:58 Polychromasia Not Reportable 02/12/20 09:58 Hypochromasia Not Reportable 02/12/20 09:58 Poikilocytosis Not Reportable 02/12/20 09:58 Anisocytosis Few 02/12/20 09:58 Microcytosis Few 02/12/20 09:58 Macrocytosis Few 02/12/20 09:58 Spherocytes Not Reportable 02/12/20 09:58 Pappenheimer Bodies Not Reportable 02/12/20 09:58 Sickle Cells Not Reportable 02/12/20 09:58 Target Cells Not Reportable 02/12/20 09:58 Tear Drop Cells Not Reportable 02/12/20 09:58 Ovalocytes Not Reportable 02/12/20 09:58 Helmet Cells Not Reportable 02/12/20 09:58 [place] Bodies Not Reportable 02/12/20 09:58 [place] Rings Not Reportable 02/12/20 09:58 Clubb Cells Not Reportable 02/12/20 09:58 Bite Cells Not Reportable 02/12/20 09:58 Crenated Cell Not Reportable 02/12/20 09:58 Elliptocytes Not Reportable 02/12/20 09:58 Acanthocytes (Spur) Not Reportable 02/12/20 09:58 Rouleaux Not Reportable 02/12/20 09:58 Hemoglobin C Crystals Not Reportable 02/12/20 09:58 Schistocytes Not Reportable 02/12/20 09:58 Malaria parasites Not Reportable 02/12/20 09:58 Prabhjot Bodies Not Reportable 02/12/20 09:58 Hem Pathologist Commnt No 02/12/20 09:58 PT 14.6 Sec. (12.2-14.9) 02/12/20 09:58 INR 1.13 (0.87-1.13) 02/12/20 09:58 Sodium 139 mmol/L (137-145) 02/14/20 06:51 Potassium 3.5 mmol/L (3.6-5.0) L 02/14/20 06:51 Chloride 103.5 mmol/L (98-107) 02/14/20 06:51 Carbon Dioxide 23 mmol/L (22-30) 02/14/20 06:51 Anion Gap 16 mmol/L 02/14/20 06:51 BUN 8 mg/dL (9-20) L 02/14/20 06:51 Creatinine 0.6 mg/dL (0.8-1.3) L 02/14/20 06:51 Estimated GFR > 60 ml/min 02/14/20 06:51 BUN/Creatinine Ratio 13 % 02/14/20 06:51 Glucose 89 mg/dL (75-100) 02/14/20 06:51 Calcium 9.4 mg/dL (8.4-10.2) 02/14/20 06:51 Phosphorus 3.60 mg/dL (2.5-4.5) 02/13/20 10:38 Magnesium 1.90 mg/dL (1.7-2.3) 02/13/20 10:38 Total Bilirubin 0.60 mg/dL (0.1-1.2) 02/11/20 13:16 AST 66 units/L (5-40) H 02/11/20 13:16 ALT 31 units/L (7-56) 02/11/20 13:16 Alkaline Phosphatase 142 units/L (35-129) H 02/11/20 13:16 Ammonia TNR 02/11/20 13:16 Total Creatine Kinase 292 units/L (55-170) H 02/16/20 10:29 Total Protein 8.8 g/dL (6.3-8.2) H 02/11/20 13:16 Albumin 4.1 g/dL (3.9-5) 02/11/20 13:16 Albumin/Globulin Ratio 0.9 % 02/11/20 13:16 TSH 1.990 mlU/mL (0.270-4.200) 02/11/20 13:16 Urine Color Shaniqua (Yellow) 02/11/20 16:00 Urine Turbidity Slightly-cloudy (Clear) 02/11/20 16:00 Urine pH 5.0 (5.0-7.0) 02/11/20 16:00 Ur Specific [place] 1.025 (1.003-1.030) 02/11/20 16:00 Urine Protein 100 mg/dl mg/dL (Negative) 02/11/20 16:00 Urine Glucose (UA) Neg mg/dL (Negative) 02/11/20 16:00 Urine Ketones 20 mg/dL (Negative) 02/11/20 16:00 Urine Blood Lg (Negative) 02/11/20 16:00 Urine Nitrite Neg (Negative) 02/11/20 16:00 Urine Bilirubin Neg (Negative) 02/11/20 16:00 Urine Urobilinogen 4.0 mg/dL (<2.0) 02/11/20 16:00 Ur Leukocyte Esterase Neg (Negative) 02/11/20 16:00 Urine WBC (Auto) 2.0 /HPF (0.0-6.0) 02/11/20 16:00 Urine RBC (Auto) 3.0 /HPF (0.0-6.0) 02/11/20 16:00 U Epithel Cells (Auto) 1.0 /HPF (0-13.0) 02/11/20 16:00 Urine Mucus Few /HPF 02/11/20 16:00 Salicylates < 0.3 mg/dL (2.8-20.0) L 02/11/20 13:16 Urine Opiates Screen Presumptive negative 02/11/20 23:22 Urine Methadone Screen Presumptive negative 02/11/20 23:22 Acetaminophen 5.0 ug/mL (10.0-30.0) L 02/11/20 13:16 Ur Barbiturates Screen Presumptive negative 02/11/20 23:22 Ur Phencyclidine Scrn Presumptive negative 02/11/20 23:22 Ur Amphetamines Screen Presumptive negative 02/11/20 23:22 U Benzodiazepines Scrn Presumptive negative 02/11/20 23:22 Urine Cocaine Screen Presumptive negative 02/11/20 23:22 U Marijuana (THC) Screen Presumptive negative 02/11/20 23:22 Drugs of Abuse Note Disclamer 02/11/20 23:22 Plasma/Serum Alcohol < 0.01 % (0-0.07) 02/11/20 13:16 Gautam/IV: Voiding Method Condom Catheter IV Catheter Type [Right Wrist] Peripheral IV IV Catheter Type [Right Peripheral IV Antecubital] Active Medications - Current Medications Current Medications: Generic Name Dose Route Start Last Admin Trade Name Freq PRN Reason Stop Dose Admin Acetaminophen 650 mg 02/11/20 22:12 02/13/20 17:37 Tylenol PO 650 mg Q4H PRN Administration Pain MILD(1-3)/Fever >100.5/GARCIA Divalproex Sodium 125 mg 02/16/20 12:00 02/17/20 11:[address] PO 125 mg BID YOLI Administration Heparin Sodium (Porcine) 5,000 unit 02/12/20 06:00 02/17/20 05:50 Heparin SUB-Q 5,000 unit Q8HR YOLI Administration Sodium Chloride 1,000 mls @ 150 mls/hr 02/11/20 22:15 02/16/20 13:52 Nacl 0.9% 1000 Ml IV 150 mls/hr DIRECT YOLI Administration Lorazepam 1 mg 02/14/20 20:17 02/17/20 11:52 Ativan PO 1 mg Q3HR PRN Administration Agitation Magnesium Hydroxide 30 ml 02/11/20 22:12 Milk Of Magnesia PO Q4H PRN Constipation Ondansetron HCl 4 mg 02/11/20 22:12 Zofran IV Q8H PRN Nausea And Vomiting Risperidone 1 mg 02/17/20 22:00 Risperdal PO BID YOLI Sertraline HCl 25 mg 02/12/20 12:00 02/17/20 11:37 Zoloft PO 25 mg QDAY YOLI Administration Sodium Chloride 10 ml 02/12/20 10:00 02/17/20 13:22 Sodium Chloride Flush Syringe 10 Ml IV Not Given BID YOLI Sodium Chloride 10 ml 02/11/20 22:12 Sodium Chloride Flush Syringe 10 Ml IV PRN PRN LINE FLUSH Trazodone HCl 50 mg 02/12/20 22:00 02/16/20 22:22 Desyrel PO 50 mg QHS YOLI Administration Nutrition/Malnutrition Assess - Dietary Evaluation Nutrition/Malnutrition Findings: Nutrition Notes Start: 02/12/20 08:32 Freq: Status: Active Protocol: Document 02/16/20 13:09 JENNY (Rec: 02/16/20 13:13 JENNY [id number]) Co-Sign 02/16/20 13:09 LM Nutrition Notes Initial or Follow up Reassessment Other Pertinent Diagnosis HIV, depression, dehydration, weakness Current Diet Regular Labs/Tests no new labs Pertinent Medications NS 150 ml/hr Height 6 ft Weight 61 kg [place] Body Weight (kg) 80.90 BMI 18.2 Weight Status Underweight Subjective/Other Information F/u intakes and ONS. Per RN, pt cannot answer phone due to suicide watch. Pt still refusing all meals and ONS. Percent of energy/protein needs met: 0%/0% Burn Absent Trauma Absent Minimum of two criteria Yes Energy Intake (non-severe) <75% Estimated Energy Requirement >7 days Reduced Discount Clerk Strength Measurably Reduced (severe) #1 Nutrition Diagnosis Malnutrition Diagnosis Progress(for reassessment Continues documentation) Is patient on ventilator? No Is Patient Ambulatory and/or Out of Bed No REE-([facility]-confined to bed) 1854.996 Kcal/Kg value to use for calculation 39 Approximate Energy Requirements Using 2379 kcal/Kg Calculation Used for Recommendations Kcal/kg Additional Notes Protein: 68-86g (1.2-1.5g/kg) Fluid: 1ml/kcal Nutrition Intervention Change Diet Order: Continue regular Nutrition Support: Consult for TF if needed. Add Supplement/Snack (indicate name/kcal d/c ONS /protein ) Goal #1 Meet at least 80% of protein and energy needs via PO. Goal #2 Wt gain/maintenance Anticipated Discharge Needs: Regular with ONS PRN Follow-Up By: 02/25/20 Additional Comments F/u intakes
[2020-02-17 20:01] LABS: HIV-1 RNA QN PCR 5.62 Log cps/mL
[2020-02-17] MEDS: risperiDONE 1 MG TAB PO SCH (23:24)
[2020-02-17] MEDS: traZODone 50 MG TAB PO SCH (23:24)
[2020-02-18] MEDS: HEPARIN 5,000 UNIT/1 ML VIAL SUB-Q SCH ×2 (06:04→14:43)
[2020-02-18] MEDS: SERTRALINE 25 MG TAB PO SCH (10:16)
[2020-02-18] MEDS: DIVALPROEX DR 125 MG TAB PO SCH (10:16)
[2020-02-18] MEDS: risperiDONE 1 MG TAB PO SCH (10:16)
[2020-02-18 10:58] VITALS: BP 116/73
--- NOTE | 2020-02-18 12:51 | Progress Note ---
Subjective - Reason for Consult Consult date: 02/18/20 Reason for consult: mhe Requesting physician: JEAN-PIERRE CONLEY - Chief Complaint Chief complaint: PSYCH HPI Patient seen in room, aware he is in hospital but does not know the name, when asked why he doesnt eat, patient says the food tast bad. Patient denies Suicidal thoguhts, admits to not being on his HIV meds, says he lives with a boyfriend. Patient endorses feeling weak, alert and oriented, knows year, president and aware presidential elections coming up in March. REVIEW OF SYSTEMS Constitutional: Negative for weight loss ENT: Negative for stridor Respiratory: Negative for cough or hemoptysis All other systems reviewed and are negative MENTAL STATUS EXAMINATION General Appearance and Behavior: Age appropriate,good hygiene, wearing appropriate clothes, lying in bed, good eye contact, cooperative polite with questioning. Cooperation: Participating/engaged, Psychomotor Behavior: unremarkable and within normal limits Mood: okay Affect and affective range:decreased range Thought Process: Fluent/Logical Thought Content: Within reality Speech: Normal volume, Regular rate and rhythm Intellectual Functioning: Average Suicidal Ideation: Denies SI Homicidal Ideation: Denies HI Impulse Control:Unimpaired Insight and Judgment: Normal insight and judgment Memory: Normal Attention: Normal Orientation: Alert, oriented, Diagnoses: Treatment Plan This patient has history of HIV, combined with meds non compliance, appears week and cathetic, I spoke to sister (An) sister reports 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 Patient is alert, oriented to year, and even self aware elections coming up in March, he reports feeling weak, says he is not eating due to poor hospital food taste and denies SI. I spoke at [facility] with patient sister, who agrees with me that patient would benefit more from medical management perspective and getting back on medications. SHe agrees to call medical case worker and work with them on how to get further HIV care assistance. I do not recommend starting any psych medication. May benefit from Trazodone PRN for sleep MEDICATIONS: Risks, benefits and alternatives of medications discussed with the patient, questions answered and consent obtained from patient. PSYCHOTHERAPY: Supportive psychotherapy provided MEDICAL: Per primary team DELIRIUM PRECAUTIONS: Please re-orient patient frequently, keep lights on during the day, and minimize benzodiazepines and opiates as these medications could worsen patient's confusion. CLINICAL DATA ANALYST: DISPOSITION: Do Not Recommend acute inpatient psychiatric hospitalization at this time LEGAL STATUS: 1013 rescinded FOLLOW-UP: Will sign off Thank you for the consult. Please contact with any questions and/or concerns. Mental Status Exam - Vital signs Last Vital Signs Temp 97.5 F L 02/18/20 10:54 Pulse 94 H 02/18/20 06:23 Resp 18 02/18/20 10:54 BP 116/73 02/18/20 10:47 Pulse Ox 99 02/18/20 06:23
--- NOTE | 2020-02-18 13:28 | Event Note ---
Date: 02/18/20 HIV VL is 420K. CD4 and Genotype pending. Once Genotype available, due to his h/o intermittent compliance over the years, if no major resistances found, will plan to start him on PO Biktarvy (least likely to have drug interactions with his psych meds). Also, patient will need SW assistance in arranging follow up outpatient with [facility].
[2020-02-18] MEDS ORDERED: risperiDONE 1 MG TAB PO SCH (14:00)
--- NOTE | 2020-02-18 14:51 | Discharge Summary ---
Providers - Providers Date of Admission: 02/11/20 22:21 Date of discharge: 02/18/20 Attending physician: JEAN-PIERRE CONLEY 02/11/20 12:57 Physical Therapy Evaluation and Treat [CONS] Routine Comment: Reason For Exam: debility 02/11/20 12:58 Consult to Case Management [CONS] Routine Services Needed at Discharge: Freight Car Loader Physical Therapy Notified:: awaiting call back 02/11/20 22:14 Consult to Dietitian/Nutrition [CONS] Routine Physician Instructions: Reason For Exam: Reason for Consult: Diet education 02/11/20 22:15 Consult to Mental Health [CONS] Routine Reason For Exam: depression,,noncompliance with medications. 02/12/20 01:24 Consult to Physician [CONS] Routine Comment: Consulting Provider: RAJAN FOWLER Physician Instructions: Reason For Exam: H/O HIV. UNKNOWN CD4 COUNT 02/14/20 17:00 psychiatry consult [Consult to Mental Health] [CONS] Routine Reason For Exam: Reconsult,pt depressed,rpts words clearance for dc Primary care physician: BENY WEN Hospitalization Reason for admission: Generalized weakness/rhabdomyolysis Condition: Stable Pertinent studies: X-ray chest Hospital course: 44-year-old -[place] male with known history of depression, HIV positive and history of noncompliance with medications currently on 1013 Status sent from local psych facility for generalized weakness. Patient initial evaluation in the ED is consistent with rhabdomyolysis with elevated CK And patient is agitated confused and depressed. Placed on 1013 evaluated by psych medications optimized. Treated the rhabdomyolysis with rigorous IV hydration, CK levels slowly but gradually improved to near normal. Psych initially recommended inpatient psych placement, case management was processing, however later as patient became better and symptoms improved Psych cleared for discharge home on psych medications and follow-up per schedule upon discharge ID has evaluated the patient, follow throughout the hospital stay, and recommended follow-up with [facility] or [facility].[Case evelyn kathy gave the information to the family] Also advised to see psychiatrist at [facility] in 3 to 5 days Case management has set up home health, and assisted with information about the places the patient and the family need to follow-up with. Today patient is comfortable still confused not in acute distress vital signs stable Physical examination prior to discharge, no new complaints Patient is hemodynamically and clinically stable at discharge Discharge diagnosis; --Severe depression[sent from [place] facility] Current Visit: Yes Status: Acute Plan to address problem: Psych has evaluated and treated appropriately advised to see psychiatrist at [facility] in 3 to 5 days --Rhabdomyolysis /elevated CK -[phone] Current Visit: Yes Status: Acute Plan to address problem: resolved,Advised plenty of oral fluids --Severe dehydration Current Visit: Yes Status: Acute Plan to address problem: Resolved --HIV/on antiretrovirals, unknown CD4/viral counts Current Visit: Yes Status: Acute Plan to address problem: ID evaluated the patient, Advised to follow with [facility] or [facility].[financial risk manager gave the information to the family] --Metabolic encephalopathy; Current Visit: Yes Status: Acute Plan to address problem: Significantly improved --Severe malnutrition; BMI 16.9 Current Visit: Yes Status: Acute Plan to address problem: nutrition supplements, --DVT prophylaxis Current Visit: Yes Status: Acute Plan to address problem: Patient placed on subcutaneous heparin. -- Full code status Current Visit: Yes Status: Acute Patient is hemodynamically and clinically stable At discharge Disposition: DC/[place]-06 HOME UNDER HOME [facility] Time spent for discharge: 35 min Core Measure Documentation - Palliative Care Palliative Care/ Comfort Measures: Not Applicable - Core Measures Any of the following diagnoses?: none Exam - Constitutional Vitals: Temp Pulse Resp BP Pulse Ox 97.5 F L 94 H 18 116/73 99 02/18/20 10:54 02/18/20 06:23 02/18/20 10:54 02/18/20 10:47 02/18/20 06:23 General appearance: Present: no acute distress, cachectic, other (Confused at times) - EENT Eyes: Present: PERRL, EOM intact - Neck Neck: Present: supple, normal ROM - Respiratory Respiratory effort: normal Respiratory: bilateral: diminished, negative: rales, rhonchi, wheezing - Cardiovascular Rhythm: regular Heart Sounds: Present: S1 & S2 - Extremities Extremities: no ischemia, No edema - Abdominal General gastrointestinal: Present: soft, non-tender, non-distended, normal bowel sounds - Integumentary Integumentary: Present: clear, warm - Musculoskeletal Musculoskeletal: strength equal bilaterally - Psychiatric Psychiatric: other (Confused and agitated at times) - Neurologic Neurologic: moves all extremities Plan Activity: advance as tolerated, fall precautions Diet: regular Additional Instructions: Family advised to take the patient to [facility] or [facility].[financial risk manager gave the information to the family]. Also advised to see psychiatrist at [facility] in 3 to 5 days. Patient needs 24/ supervision Follow up with: BENY WEN MD [Primary Care Provider] - 7 Days Prescriptions: traZODone [Desyrel] 50 mg PO QHS #15 tablet risperiDONE [RisperDAL] 0.5 mg PO BID #30 tablet Sertraline [Zoloft] 25 mg PO QDAY #15 tablet
[2020-02-22 11:55] LABS: CD19, Absolute SEE SCANNED RESULT; CD3, Absolute SEE SCANNED RESULT; CD3, Percentage SEE SCANNED RESULT; CD4, Absolute SEE SCANNED RESULT; CD4, Percentage SEE SCANNED RESULT; CD4/CD8 Ratio SEE SCANNED RESULT; CD8, Absolute SEE SCANNED RESULT; CD8, Percentage SEE SCANNED RESULT; Lymphocytes, Absolute SEE SCANNED RESULT
== END 2020-02-18 19:31 | disposition home health service (06) | DRG 70 ==
LOC: ED 12:26 → OBSVTOIN 22:21 → 3A 22:21
PROVIDERS: ADMIT Internal Medicine Geriatric Medicine; ATTEND Internal Medicine
DX: G93.41 Metabolic encephalopathy (principal); E43 Unspecified severe protein-calorie malnutrition; M62.82 Rhabdomyolysis; Z68.1 Body mass index [BMI] 19.9 or less, adult; R53.81 Other malaise; R74.8 Abnormal levels of other serum enzymes; E86.0 Dehydration; F32.9 Major depressive disorder, single episode, unspecified; Z21 Asymptomatic human immunodeficiency virus [HIV] infection status
CPT/HCPCS: 36415; 71045; 80048; 80053; 80307; 80320; 81001; 82024; 82550; 83735; 84100; 84132; 84443; 85007; 85025; 85610; 87536; 87901; 93005; 96372; 96374; G0378; G0480; J1644; J7030; J7042; J7120